=== PATIENT | female | born 1950 ===

== ENCOUNTER 2016-11-25 16:16 | Inpatient (IN) | payer MEDICARE, OTHER ==
[2016-11-25] MEDS ORDERED: Sodium Chloride 0.9% 500 ML IV STA (16:40)
--- NOTE | 2016-11-25 16:48 | ED PDOC ---
HPI: Chest Pain Time Seen by Provider: 11/25/16 16:29 Chief Complaint (Nursing): Chest Pain Chief Complaint (Provider): Left sided chest discomfort History Per: Patient History/Exam Limitations: no limitations Onset/Duration Of Symptoms: Days (1) Current Symptoms Are (Timing): Still Present Quality: Pressure Associated Symptoms: Nausea (nausea and vomiting) Additional History Per: Patient Additional Complaint(s): The Patient is a 66yo female, Past medical history of Hypertension, presents to the ED for evaluation of left sided chest pressure radiating to her left arm with episodes of vomiting since last night. Patient reports she had similar symptom last year which resolved spontaneously. She reports her chest discomfort is getting better but has not resolved completely. She denies any associated headache, dizziness, abdomina pain, shortness of breath, numbness, tingling, light headedness, dizziness, leg pain. Patient also denies being on any hormonal treatments. She currently offers no additional medical complaints. No new food or drinks. No etoh or drugs. No travel. No known drug allergies Past Medical History Reviewed: Historical Data, Nursing Documentation, Vital Signs Vital Signs: Last Vital Signs Temp 97.7 F 11/25/16 16:23 Pulse 56 L 11/25/16 16:23 Resp 18 11/25/16 16:23 BP Pulse Ox 99 11/25/16 16:55 - Medical History PMH: HTN - Surgical History Other surgeries: abdominal surgery for colon ca resection - Family History Family History: States: Unknown Family Hx - Social History Current smoker - smoking cessation education provided: No Alcohol: None Drugs: Denies - Allergies Allergies/Adverse Reactions: Allergies Allergy/AdvReac Type Severity Reaction Status Date / Time iodine Allergy RASH Verified 11/25/16 16:23 Review of Systems ROS Statement: Except As Marked, All Systems Reviewed And Found Negative Constitutional: Negative for: Weakness Cardiovascular: Positive for: Chest Pain (Left sided chest discomfort radiating to left axilla) Respiratory: Negative for: Shortness of Breath Gastrointestinal: Positive for: Vomiting. Negative for: Abdominal Pain Musculoskeletal: Negative for: Leg Pain Neurological: Negative for: Weakness, Numbness, Headache, Dizziness Physical Exam - Reviewed Nursing Documentation Reviewed: Yes Vital Signs Reviewed: Yes - Physical Exam Appears: Positive for: Non-toxic, No Acute Distress Head Exam: Positive for: ATRAUMATIC, NORMAL INSPECTION, NORMOCEPHALIC Skin: Positive for: Normal Color, Warm Eye Exam: Positive for: Normal appearance ENT: Positive for: Normal ENT Inspection Neck: Positive for: Normal, Supple Cardiovascular/Chest: Positive for: Regular Rate, Rhythm Respiratory: Positive for: Normal Breath Sounds. Negative for: Respiratory Distress Gastrointestinal/Abdominal: Positive for: Normal Exam, Soft. Negative for: Tenderness Back: Positive for: Normal Inspection. Negative for: L CVA Tenderness, R CVA Tenderness Extremity: Positive for: Normal ROM. Negative for: Tenderness, Pedal Edema, Deformity, Swelling Neurologic/Psych: Positive for: Alert, Oriented. Negative for: Motor/Sensory Deficits - Laboratory Results Result Diagrams: 11/25/16 16:54 11/25/16 16:54 Interpretation Of Abn Labs: ast, alt, t bili elevated - ECG ECG: Positive for: Interpreted By Me, Viewed By Me Interpretation Of ECG: EKg findings similar to prior. Q waves in inferior leads O2 Sat by Pulse Oximetry: 99 (RA) Pulse Ox Interpretation: Normal - Radiology X-Ray: Read By Radiologist X-Ray Interpretation: No Acute Disease - Progress ED Course And Treament: 1832: Stable. AAOx3. Dr. Alegria to take over care. FU on US and dispo. Here with chest pain. Pain free currently. Medical Decision Making Medical Decision Making: Time: 1640 Impression: Left sided chest pain radiating to left arm Plan: -- Labs -- IV Fluids -- Aspirin 325 mg PO -- Zofran 4 mg IV -- EKG -- Chest x-ray Reassess Scribe Attestation: Documented by Flaquita Jordan acting as a scribe for Otto Huerta MD. Provider Attestation: All medical record entries made by the Scribe were at my direction and personally dictated by me. I have reviewed the chart and agree that the record accurately reflects my personal performance of the history, physical exam, medical decision making, and the department course for this patient. I have also personally directed, reviewed, and agree with the discharge instructions and disposition. Disposition - Clinical Impression Clinical Impression: Chest pain, Elevated liver enzymes - Patient ED Disposition Is Patient to be Admitted: Transfer of Care - Disposition Disposition: Transfer of Care Disposition Time: 18:33 Condition: FAIR Patient Signed Over To: Leonora Alegria
[2016-11-25 17:12] LABS: BASO % 0.5 % (0.0-2.0); EOS # 0.1 K/uL (0.0-0.7); EOS % 1.2 % (0.0-4.0); HEMOGLOBIN 15.9 g/dL (12.0-16.0); LYMPH # 0.7 K/uL (1.0-4.3); LYMPH % 12.6 % (20.0-40.0); MEAN CELL VOLUME 95.9 fl (81.0-99.0); MEAN CORPUSCULAR HEMOGLOBIN 32.7 pg (27.0-31.0); MEAN CORPUSCULAR HGB CONC 34.1 g/dL (33.0-37.0); MEAN PLATELET VOLUME 7.7 fl (7.2-11.7); MONO # 0.4 K/uL (0.0-0.8); MONO % 6.4 % (0.0-10.0); NEUT # 4.7 K/uL (1.8-7.0); NEUT % 79.3 % (50.0-75.0); NRBC % 0.1 % (0.0-0.0); RBC 4.85 Mil/uL (3.80-5.20); RED CELL DISTRIBUTION WIDTH 13.9 % (11.5-14.5); WHITE BLOOD COUNT 5.9 K/uL (4.8-10.8)
[2016-11-25 17:16] LABS: ALB/GLOB RATIO 1.4 (1.0-2.1); ALBUMIN 4.5 g/dL (3.5-5.0); ALT/SGPT 369 U/L (9-52); AST/SGOT 349 U/L (14-36); BLOOD UREA NITROGEN 16 mg/dl (7-17); CALCIUM 9.3 mg/dL (8.4-10.2); GFR AFRICAN-AMERICAN > 60; GFR NON-AFRICAN AMERICAN > 60
--- NOTE | 2016-11-25 17:46 | RAD ---
HISTORY: pain COMPARISON: 10/15/2016 FINDINGS: LUNGS: No active pulmonary disease. PLEURA: No significant pleural effusion identified, no pneumothorax apparent. CARDIOVASCULAR: Normal. OSSEOUS STRUCTURES: No significant abnormalities. VISUALIZED UPPER ABDOMEN: Normal. OTHER FINDINGS: None. IMPRESSION: No active disease.
--- NOTE | 2016-11-25 19:14 | ED PDOC ---
- Laboratory Results Result Diagrams: 11/25/16 16:54 11/25/16 16:54 - ECG O2 Sat by Pulse Oximetry: 99 (RA) Pulse Ox Interpretation: Normal Medical Decision Making Medical Decision Making: Receiving sign out: Patient signed out to me by Dr. Huerta pending imaging results and final disposition. Scribe Attestation: Documented by Flaquita Jordan acting as a scribe for Leonora Alegria MD. Provider Attestation: All medical record entries made by the Scribe were at my direction and personally dictated by me. I have reviewed the chart and agree that the record accurately reflects my personal performance of the history, physical exam, medical decision making, and the department course for this patient. I have also personally directed, reviewed, and agree with the discharge instructions and disposition. Disposition - Clinical Impression Clinical Impression: Chest pain, Elevated liver enzymes - POA Present On Arrival: None - Disposition Disposition: Hospitalized as Observation Patient Disposition Time: 21:00 Condition: IMPROVED Progress Note - Review of Symptoms Events since last encounter: Time: 2045 US Abdomen IMPRESSION: Distended gallbladder with a small mobile stone; mildly enlarged fatty liver; small right extrarenal pelvis most likely normal variant; greater than 20% postvoid residual Patient was not tender over the gallbladder Time: 2099 Discussed with patient regarding need for admission, answered all questions and patient is agreeable. Case discussed with Dr. Maradiaga who is agreeable.
--- NOTE | 2016-11-25 20:44 | US ---
EXAM: US Abdomen Limited, Right Upper Quadrant CLINICAL HISTORY: 66 years old, female; Pain; Abdominal pain; Additional info: Eval gb/liver with elevated ast/alt TECHNIQUE: Real-time ultrasound of the right upper quadrant with image documentation. EXAM DATE/TIME: 11/25/2016 5:50 PM COMPARISON: There are no prior studies for comparison. FINDINGS: Liver: Hepatic texture is mildly heterogeneous. Liver appears mildly enlarged.There is hepatopedal flow in the main portal vein. Gallbladder: Gallbladder is distended. There are small shadowing stones. Gallbladder wall measures 2.6 mm in width. Common bile duct: Common hepatic duct measures 8.8 mm in the kemi hepatis. Pancreas: Pancreas is partially obscured by bowel gas. Visualized portion is echogenic. Right kidney: Right kidney is unremarkable. There is a small extrarenal pelvis. Aorta: Visualized portions of the aorta and inferior vena cava are unremarkable. Other findings: Urinary bladder is partially distended, estimated volume 262 cc. Postvoid volume is calculated at 61.6 cc. IMPRESSION: Distended gallbladder with a small mobile stone; mildly enlarged fatty liver; small right extrarenal pelvis most likely normal variant; greater than 20% postvoid residual Patient was not tender over the gallbladder
[2016-11-25 21:36] LABS: VENOUS BLOOD GAS PCO2 77 mmHg (40-60); VENOUS BLOOD GAS PO2 21 mm/Hg (30-55); VENOUS BLOOD PH 7.12 (7.32-7.43)
--- NOTE | 2016-11-25 21:44 | CP.PCM.HP ---
History of Present Illness - History of Present Illness History of Present Illness: PCP: Bria Moreno Chief Complaint: Chest pain HPI: 66 years [place] female with Hx of HTN, Diverticulosis and rectal cancer s/p colon resection, comes with sudden unset of a continuous 2 days of pressure like left sided chest pain radiating to the left axilla beginning at rest and not relieved with her home medications. It was associated with palpitations, nausea and vomits. No diaphoresis, headache, SOB nor abdominal pains. PMH: Bronchitis; HTN; Rectal cancer; Diverticulosis; Kidney stone x2 PSH: Colon resection 1995 SH: Occasional Alcohol. Smokes 1PPWeek; Live with family; FH: No known Family Hx Allergy: Iodine Present on Admission - Present on Admission Any Indicators Present on Admission: No History of DVT/PE: No History of Uncontrolled Diabetes: No Urinary Catheter: No Decubitus Ulcer Present: No Review of Systems - Constitutional Constitutional: absent: Fatigue, Fever, Headache, Lethargy, Night Sweats - EENT Eyes: Requires Corrective Lenses. absent: Diplopia, Photophobia, Sees Flashes Ears: absent: Decreased Hearing, Ear Discharge, Ear Pain, Tinnitus Nose/Mouth/Throat: absent: Epistaxis, Nasal Congestion, Sinus Pain, Sinus Pressure - Respiratory Respiratory: absent: Cough, Wheezing, Stridor - Gastrointestinal Gastrointestinal: Nausea, Vomiting. absent: Abdominal Pain, Constipation, Diarrhea - Genitourinary Genitourinary: absent: Dysuria, Flank Pain, Hematuria, Urinary Frequency - Musculoskeletal Musculoskeletal: absent: Back Pain, Neck Pain (Heaviness in legs) - Integumentary Integumentary: absent: Pruritus, Skin Ulcer, Sores - Neurological Neurological: absent: Confusion, Focal Weakness, Paresthesias, Weakness - Psychiatric Psychiatric: absent: Anxiety, Depression, Panic Attacks - Endocrine Endocrine: absent: Palpitations, Polydipsia, Polyphagia, Polyuria - Hematologic/Lymphatic Hematologic: absent: Easy Bleeding, Easy Bruising Past Patient History - Past Medical History & Family History Past Medical History?: Yes - Past Social History Smoking Status: Light Smoker < 10 Cigarettes Daily Chewing Tobacco Use: No Cigar Use: No Alcohol: Occasional Drugs: Denies Home Situation {Lives}: With Family - CARDIAC Hx Hypertension: Yes - NEUROLOGICAL Hx Neurological Disorder: No - HEENT Hx HEENT Problems: No - RENAL Hx Chronic Kidney Disease: No - ENDOCRINE/METABOLIC Hx Endocrine Disorders: No - HEMATOLOGICAL/ONCOLOGICAL Hx Cancer: Yes (rectal) - INTEGUMENTARY Hx Dermatological Problems: No - MUSCULOSKELETAL/RHEUMATOLOGICAL Hx Musculoskeletal Disorders: No - GASTROINTESTINAL Hx Gastrointestinal Disorders: No - GENITOURINARY/GYNECOLOGICAL Hx Urinary Tract Infection: Yes - PSYCHIATRIC Hx Psychophysiologic Disorder: No Hx Substance Use: No - SURGICAL HISTORY Hx Surgeries: Yes Other/Comment: Colon resection. - ANESTHESIA Hx Anesthesia: Yes Hx Anesthesia Reactions: No Meds Allergies/Adverse Reactions: Allergies Allergy/AdvReac Type Severity Reaction Status Date / Time iodine Allergy RASH Verified 11/25/16 16:23 Physical Exam - Constitutional Appears: No Acute Distress - Head Exam Head Exam: ATRAUMATIC, NORMAL INSPECTION, NORMOCEPHALIC - Eye Exam Eye Exam: EOMI, Normal appearance Pupil Exam: NORMAL ACCOMODATION, PERRL - ENT Exam ENT Exam: Mucous Membranes Moist, Normal Exam, Normal External Ear Exam, Normal Oropharynx - Neck Exam Neck exam: Positive for: Full Rom, Normal Inspection. Negative for: Lymphadenopathy, Tenderness - Respiratory Exam Respiratory Exam: Clear to Auscultation Bilateral. absent: Rales, Rhonchi, Wheezes - Cardiovascular Exam Cardiovascular Exam: REGULAR RHYTHM, RRR, +S1, +S2. absent: Gallop, JVD - GI/Abdominal Exam GI & Abdominal Exam: Normal Bowel Sounds, Soft. absent: Mass, Organomegaly - Rectal Exam Rectal Exam: Deferred - Extremities Exam Extremities exam: Positive for: normal inspection. Negative for: calf tenderness, joint swelling, pedal edema - Back Exam Back exam: NORMAL INSPECTION. absent: CVA tenderness (L), CVA tenderness (R) - Neurological Exam Neurological exam: Alert, CN II-XII Intact, Oriented x3, Reflexes Normal - Psychiatric Exam Psychiatric exam: Normal Affect, Normal Mood - Skin Skin Exam: Dry, Intact, Normal Color, Warm Results - Vital Signs Recent Vital Signs: Last Vital Signs Temp 97.7 F 11/25/16 16:23 Pulse 56 L 11/25/16 16:23 Resp 18 11/25/16 16:23 BP Pulse Ox 99 11/25/16 21:17 - Labs Result Diagrams: 11/25/16 16:54 11/26/16 05:25 Labs: Laboratory Results - last 24 hr 11/25/16 11/25/16 11/25/16 16:54 16:54 19:00 WBC 5.9 RBC 4.85 Hgb 15.9 Hct 46.6 MCV 95.9 MCH 32.7 H MCHC 34.1 RDW 13.9 Plt Count 207 MPV 7.7 Neut % (Auto) 79.3 H Lymph % (Auto) 12.6 L Wagoner % (Auto) 6.4 Eos % (Auto) 1.2 Baso % (Auto) 0.5 Neut # 4.7 Lymph # 0.7 L Wagoner # 0.4 Eos # 0.1 Baso # 0.0 pO2 VBG pH VBG pCO2 VBG HCO3 VBG Total CO2 VBG O2 Sat (Calc) VBG Base Excess Glucose Lactate FiO2 Blood Gas Comments Crit Value Called To Crit Value Called By Crit Value Read Back Blood Gas Notified Time Sodium 139 Potassium 4.1 Chloride 103 Carbon Dioxide 28 Anion Gap 12 BUN 16 Creatinine 0.7 Est GFR ( Amer) > 60 Est GFR (Non-Af Amer) > 60 Random Glucose 110 H Calcium 9.3 Total Bilirubin 2.7 H AST 349 H D ALT 369 H D Alkaline Phosphatase 142 H D Troponin I < 0.0120 Total Protein 7.8 Albumin 4.5 Globulin 3.3 Albumin/Globulin Ratio 1.4 Lipase 1037 H 11/25/16 21:28 WBC RBC Hgb Hct MCV MCH MCHC RDW Plt Count MPV Neut % (Auto) Lymph % (Auto) Wagoner % (Auto) Eos % (Auto) Baso % (Auto) Neut # Lymph # Wagoner # Eos # Baso # pO2 21 L VBG pH 7.12 L* VBG pCO2 77 H* VBG HCO3 18.1 VBG Total CO2 27.4 VBG O2 Sat (Calc) 29.7 L VBG Base Excess -6.0 L Glucose 99 Lactate 0.9 FiO2 21.0 Blood Gas Comments Hand delivered Crit Value Called To Dr shea burgos Crit Value Called By 162 Crit Value Read Back Y Blood Gas Notified Time 2130 Sodium 123.0 L Potassium Chloride 101.0 Carbon Dioxide Anion Gap BUN Creatinine Est GFR ( Amer) Est GFR (Non-Af Amer) Random Glucose Calcium Total Bilirubin AST ALT Alkaline Phosphatase Troponin I Total Protein Albumin Globulin Albumin/Globulin Ratio Lipase - Imaging and Cardiology Chest x-ray Status: Image reviewed by me, Report reviewed by me Additional comment: No Active Disease Abdominal US Status: Report reviewed by me Additional comment: FINDINGS: Liver: Hepatic texture is mildly heterogeneous. Liver appears mildly enlarged.There is hepatopedal flow in the main portal vein. Gallbladder: Gallbladder is distended. There are small shadowing stones. Gallbladder wall measures 2.6 mm in width. Common bile duct: Common hepatic duct measures 8.8 mm in the kemi hepatis. Pancreas: Pancreas is partially obscured by bowel gas. Visualized portion is echogenic. Right kidney: Right kidney is unremarkable. There is a small extrarenal pelvis. Aorta: Visualized portions of the aorta and inferior vena cava are unremarkable. Other findings: Urinary bladder is partially distended, estimated volume 262 cc. Postvoid volume is calculated at 61.6 cc. IMPRESSION: Distended gallbladder with a small mobile stone; mildly enlarged fatty liver; small right extrarenal pelvis most likely normal variant; greater than 20% postvoid residual Patient was not tender over the gallbladder Assessment & Plan - Assessment and Plan (Free Text) Assessment: #. Chest Pain #.Elevated liver enzymes #. Pancreatitis #. Respiratory and Metabolic acidosis #. Fatty liver #. Cholelithiasis #. Hx of rectal Ca Plan: 66 years [place] female with Hx of HTN, Diverticulosis and rectal cancer s/p colon resection, comes with sudden unset of a continuous 2 days of pressure like left sided chest pain radiating to the left axilla beginning at rest and not relieved with her home medications. #. Chest Pain r/o ACS - Consult Dr Vasquez cardiology - Serial Troponin - Serial EKG - Lipid panel - ASA - Nitro SL - ECHO #.Elevated liver enzymes with Fatty liver - Follow CT of abdomen with Contrast to r/o signs of malignancy Patient indicate that she will see her Support Services Specialist Dr Moraes as an out- Patient #. Elevated Lipase - Probably pancreatitis - IV fluids - Follow Lipase #. Respiratory and Metabolic acidosis - Follow Repeat VBG #. Cholelithiasis with no cholecystitis - Patient may need MRCP She will follow up with her Support Services Specialist who is not on staff #. Hx of rectal Ca #. Stress ulcer prophylaxis with Pepcid #. DVT prophylaxis with Lovenox #. Code Status Full - Date & Time Date: 11/25/16 Time: 21:44
[2016-11-25 21:49] LABS: PARTIAL THROMBOPLASTIN TIME 33.1 Seconds (25.6-37.1); PROTHROMBIN TIME 11.3 Seconds (9.8-13.1)
[2016-11-26] MEDS: Sodium Chloride 0.9% 1,000 ML IV SCH ×3 (00:29→16:46)
[2016-11-26] MEDS ORDERED: Alum-Mag Hydrox-Simethicone Susp (30 mL) ONE (03:45)
[2016-11-26] MEDS ORDERED: Iohexol 240 (50 ml) ONE (05:01)
[2016-11-26] MEDS ORDERED: Diatriz Meglumine/Diatriz Sod 30 ML BOTTLE PO ONE (05:12)
[2016-11-26] MEDS ORDERED: Iohexol 240 (50 ml) PO ONE ×2 (05:54→06:19)
[2016-11-26] MEDS ORDERED: Hydrocortisone- 100 MG in Sodium Chloride 0.9% 100 ML IV ONE (06:00)
[2016-11-26 06:49] LABS: ALB/GLOB RATIO 1.3 (1.0-2.1); ALBUMIN 3.9 g/dL (3.5-5.0); ALT/SGPT 313 U/L (9-52); AST/SGOT 255 U/L (14-36); BLOOD UREA NITROGEN 13 mg/dl (7-17); CALCIUM 8.6 mg/dL (8.4-10.2); GFR AFRICAN-AMERICAN > 60; GFR NON-AFRICAN AMERICAN > 60; HDL CHOLESTEROL 47 MG/DL (30-70)
[2016-11-26 07:00] LABS: LDL CHOLESTEROL 103 mg/dL (0-129)
[2016-11-26 08:32] LABS: LIPASE 39732 U/L (23-300)
--- NOTE | 2016-11-26 08:46 | CP.PCM.CON ---
History of Present Illness - History of Present Illness History of Present Illness: Full Note Dictated Patient seen at her request. Pt known to me personally. Atypical Chest Pain No evidence of ACS Ca Rectum (in remission/ ?? recurrence) Hypertension Past Patient History - Past Medical History & Family History Past Medical History?: Yes - Past Social History Smoking Status: Light Smoker < 10 Cigarettes Daily Chewing Tobacco Use: No Cigar Use: No Alcohol: Occasional Drugs: Denies Home Situation {Lives}: With Family - CARDIAC Hx Hypertension: Yes - PULMONARY Hx Respiratory Disorders: No - NEUROLOGICAL Hx Neurological Disorder: No - HEENT Hx HEENT Problems: No - RENAL Hx Chronic Kidney Disease: No - ENDOCRINE/METABOLIC Hx Endocrine Disorders: No - HEMATOLOGICAL/ONCOLOGICAL Hx Cancer: Yes (rectal) - INTEGUMENTARY Hx Dermatological Problems: No - MUSCULOSKELETAL/RHEUMATOLOGICAL Hx Musculoskeletal Disorders: No - GASTROINTESTINAL Hx Gastrointestinal Disorders: No - GENITOURINARY/GYNECOLOGICAL Hx Urinary Tract Infection: Yes - PSYCHIATRIC Hx Psychophysiologic Disorder: No Hx Substance Use: No - SURGICAL HISTORY Hx Surgeries: Yes Other/Comment: Colon resection. - ANESTHESIA Hx Anesthesia: Yes Hx Anesthesia Reactions: No Meds Allergies/Adverse Reactions: Allergies Allergy/AdvReac Type Severity Reaction Status Date / Time iodine Allergy RASH Verified 11/25/16 16:23 - Medications Medications: Current Medications Aspirin (Ecotrin) 81 mg PO DAILY [facility] Enalapril Maleate (Vasotec) 10 mg PO DAILY [facility] Enoxaparin Sodium (Lovenox) 40 mg SC DAILY [facility] PRN Reason: Protocol Famotidine (Pepcid) 20 mg PO DAILY [facility] Sodium Chloride (Sodium Chloride 0.9%) 1,000 mls @ 250 mls/hr IV .Q4H [facility] Stop: 11/26/16 23:39 Last Admin: 11/26/16 06:08 Dose: 250 mls/hr Nitroglycerin (Nitrostat Sl Tab) 0.4 mg SL Q5M PRN PRN Reason: Other Ondansetron HCl (Zofran Inj) 4 mg IVP Q4 PRN PRN Reason: Nausea/Vomiting Results - Vital Signs Recent Vital Signs: Last Vital Signs Temp 98.0 F 11/26/16 08:30 Pulse 59 L 11/26/16 08:30 Resp 20 11/26/16 08:30 BP 163/89 H 11/26/16 08:30 Pulse Ox 97 11/26/16 08:30 - Labs Result Diagrams: 11/25/16 16:54 11/26/16 05:25 Labs: Laboratory Results - last 24 hr 11/25/16 11/25/16 11/26/16 21:09 21:28 05:25 PT 11.3 INR 1.0 APTT 33.1 pO2 21 L VBG pH 7.12 L* VBG pCO2 77 H* VBG HCO3 18.1 VBG Total CO2 27.4 VBG O2 Sat (Calc) 29.7 L VBG Base Excess -6.0 L Sodium 123.0 L 141 Chloride 101.0 110 H Glucose 99 Lactate 0.9 FiO2 21.0 Blood Gas Comments Hand delivered Crit Value Called To Dr shea burgos Crit Value Called By 162 Crit Value Read Back Y Blood Gas Notified Time 2130 Potassium 3.9 Carbon Dioxide 21 L Anion Gap 14 BUN 13 Creatinine 0.6 L Est GFR ( Amer) > 60 Est GFR (Non-Af Amer) > 60 Random Glucose 135 H Calcium 8.6 Total Bilirubin 4.3 H AST 255 H D ALT 313 H Alkaline Phosphatase 143 H Troponin I < 0.0120 Total Protein 6.9 Albumin 3.9 Globulin 3.0 Albumin/Globulin Ratio 1.3 Triglycerides 137 Cholesterol 186 LDL Cholesterol Direct 103 HDL Cholesterol 47 Lipase 55018 H
[2016-11-26] MEDS ORDERED: Iohexol 300 100 ML IJ ONE ×2 (08:52→13:16)
[2016-11-26] MEDS ORDERED: Sodium Chloride 0.9% 0 ML IV ONE (08:52)
[2016-11-26] MEDS: Enoxaparin 40 mg Syringe SC SCH (09:18)
--- NOTE | 2016-11-26 13:05 | CP.PCM.PN ---
Subjective - Date & Time of Evaluation Date of Evaluation: 11/26/16 Time of Evaluation: 11:30 - Subjective Subjective: Patient seen and examined bedside.Feeling well. denies any Chest pain , abdominal pain , nausea or vomiting. Had 1 episode of vomiting in AM NPO for now Hemodynamically stable, afebrile. LFTS and bilirubin trending up Objective - Vital Signs/Intake and Output Vital Signs (last 24 hours): Temp Pulse Resp BP Pulse Ox 97.9 F 57 L 20 167/83 H 96 11/26/16 12:26 11/26/16 12:11/26/16 12:11/26/16 12:11/26/16 12:26 - Medications Medications: Current Medications Aspirin (Ecotrin) 81 mg PO DAILY [facility] Enalapril Maleate (Vasotec) 10 mg PO DAILY [facility] Enoxaparin Sodium (Lovenox) 40 mg SC DAILY [facility] PRN Reason: Protocol Last Admin: 11/26/16 09:18 Dose: 40 mg Famotidine (Pepcid) 20 mg PO DAILY [facility] Sodium Chloride (Sodium Chloride 0.9%) 1,000 mls @ 250 mls/hr IV .Q4H [facility] Stop: 11/26/16 23:39 Last Admin: 11/26/16 06:08 Dose: 250 mls/hr Nitroglycerin (Nitrostat Sl Tab) 0.4 mg SL Q5M PRN PRN Reason: Other Ondansetron HCl (Zofran Inj) 4 mg IVP Q4 PRN PRN Reason: Nausea/Vomiting Last Admin: 11/26/16 09:20 Dose: 4 mg - Labs Labs: 11/26/16 05:25 PT 11.3 Seconds (9.8-13.1) 11/25/16 21:09 INR 1.0 (0.9-1.2) 11/25/16 21:09 APTT 33.1 Seconds (25.6-37.1) 11/25/16 21:09 - Constitutional Appears: Well, Non-toxic, No Acute Distress - Head Exam Head Exam: ATRAUMATIC, NORMAL INSPECTION, NORMOCEPHALIC - Eye Exam Eye Exam: EOMI, Normal appearance, PERRL Pupil Exam: NORMAL ACCOMODATION - ENT Exam ENT Exam: Mucous Membranes Moist, Normal Exam - Neck Exam Neck Exam: Full ROM, Normal Inspection - Respiratory Exam Respiratory Exam: Clear to Ausculation Bilateral, NORMAL BREATHING PATTERN. absent: Rales, Rhonchi, Wheezes - Cardiovascular Exam Cardiovascular Exam: REGULAR RHYTHM, RRR, +S1, +S2. absent: JVD - GI/Abdominal Exam GI & Abdominal Exam: Soft, Normal Bowel Sounds. absent: Distended, Guarding, Tenderness, Rebound - Rectal Exam Rectal Exam: Deferred - Extremities Exam Extremities Exam: Full ROM, Normal Capillary Refill, Normal Inspection. absent : Calf Tenderness, Pedal Edema - Back Exam Back Exam: NORMAL INSPECTION - Neurological Exam Neurological Exam: Alert, Awake, CN II-XII Intact, Oriented x3 - Psychiatric Exam Psychiatric exam: Normal Affect, Normal Mood - Skin Skin Exam: Dry, Intact, Normal Color, Warm Assessment and Plan - Assessment and Plan (Free Text) Assessment: 66 years old female with Hx of HTN, Diverticulosis and rectal cancer s/p colon resection, comes with sudden unset of a continuous 2 days of pressure like left sided chest pain radiating to the left axilla beginning at rest and not relieved with her home medications. Patient initially admitted for chest pain rule out ACS. Her lab work up showed elevated LFT-s , bilirubin and lipase .patient with no abdominal pain , nausea, vomiting, melena 1. Chest Pain-- ACS ruled out Consult Dr Vasquez cardiology appreciated Serial Troponin negative Echo showed normal wall motion continue ASA 2.Elevated liver enzymes. bilirubin and Lipase uncler etiology LFT-s, bilirubin and Liapose trending up Ct abdomen showed possible acute on subacute cholecystitis Surgery and GI consulted follow up MRI and MRCP follow up hepatitis profile, Ca19-9, Alfafeto proteine, antimitochondrail Ab, Continue IVF 3. Elevated Lipase unlikely pancreatitis patient has no abdominal pain , nausea or vomiting CT abdomen showed no pancreatitis 4. Cholelithiasis with acute on subacute cholecystitis surgery consulted Started Zosyn IV empirically Follow up MRCP 5. Respiratory and Metabolic acidosis unclear etology Continue IVF refused ABG 6. Hx of rectal Ca 7. Stress ulcer prophylaxis with Pepcid 8. DVT prophylaxis with Lovenox
[2016-11-26] MEDS ORDERED: Sodium Chloride 0.9% 50 ML IV ONE (13:16)
--- NOTE | 2016-11-26 13:19 | CARD ---
APPROVED REPORT EKG Measurement Heart [id number] [id number] <Conclusion> Sinus bradycardia Left axis deviation Inferior infarct, age undetermined Abnormal ECG
--- NOTE | 2016-11-26 13:26 | CARD ---
APPROVED REPORT EKG Measurement Heart [id number] <Conclusion> Sinus bradycardia Left axis deviation Inferior infarct, age undetermined Abnormal ECG
--- NOTE | 2016-11-26 14:12 | CARD ---
APPROVED REPORT EXAM: Two-dimensional and M-mode echocardiogram with Doppler and color Doppler. Other Information Quality : GoodRhythm : NSR INDICATION Chest Pain 2D DIMENSIONS IVSd0.84 (0.7-1.1cm)LVDd4.14 (3.9-5.9cm) PWd0.81 (0.7-1.1cm)IVSs1.24 (0.8-1.2cm) LVDs2.40 (2.5-4.0cm)FS (%) 42.1 % PWs1.21 (0.8-1.2cm) M-Mode DIMENSIONS Left Atrium (MM)3.04 (2.5-4.0cm)IVSd0.59 (0.7-1.1cm) Aortic Root2.52 (2.2-3.7cm)LVDd4.99 (4.0-5.6cm) Aortic Cusp Exc.1.36 (1.5-2.0cm)PWd0.77 (0.7-1.1cm) IVSs1.00 cmFS (%) 29 % LVDs3.53 (2.0-3.8cm)PWs0.98 cm Mitral Valve MV E Erlfyafz42.8cm/sMV E Peak Gr.44mmHgMV DECEL [id number] MV A Fxdplulo47.9cm/sMV HFC70yiW/A ratio0.7 MVA (PHT)3.59cm2 TDI Lateral E' Peak V10.76cm/sMedial E' Peak V14.83cm/sE/Lateral E'5.7 E/Medial E'4.1 Tricuspid Valve TR Peak [id number]/sRAP [id number] Peak Gr.25mmHg [id number] LEFT VENTRICLE The left ventricle is normal size. There is normal left ventricular wall thickness. The left ventricular function is normal. The left ventricular ejection fraction is - 70%. There is normal LV segmental wall motion. Transmitral Doppler flow pattern is Grade I-abnormal relaxation pattern. No left ventricle thrombus noted on this study. There is no ventricular septal defect visualized. There is no left ventricular aneurysm. There is no mass noted in the left ventricle. RIGHT VENTRICLE The right ventricle is normal size. There is normal right ventricular wall thickness. The right ventricular systolic function is normal. ATRIA The left atrium size is normal. The right atrium size is normal. The interatrial septum is intact with no evidence for an atrial septal defect. AORTIC VALVE The aortic valve is normal in structure and function. No aortic regurgitation is present. There is no aortic valvular stenosis. MITRAL VALVE The mitral valve is normal in structure and function. There is no evidence of mitral valve prolapse. There is no mitral valve stenosis. Mitral regurgitation is moderate. TRICUSPID VALVE The tricuspid valve is normal in structure and function. There is mild tricuspid regurgitation. Right ventricular systolic pressure is estimated at 39 mmHg. There is no tricuspid valve prolapse or vegetation. There is no tricuspid valve stenosis. PULMONIC VALVE The pulmonary valve is normal in structure and function. There is no pulmonic valvular regurgitation. GREAT VESSELS The aortic root is normal in size. The IVC is normal in size and collapses >50% with inspiration. PERICARDIAL EFFUSION The pericardium appears normal. There is no pleural effusion. <Conclusion> The left ventricle is normal in size and wall thickness. The left ventricular function is normal. The left ventricular ejection fraction is - 70%. The left atrium, right ventricle and right atrium are normal in size. The mitral, aortic and tricuspid valves are normal. There is moderate mitral regurgitation and mild tricuspid regurgitation.
--- NOTE | 2016-11-26 15:24 | CT ---
PROCEDURE: CT Abdomen and Pelvis with contrast HISTORY: elevated LFT-s and bilirubin COMPARISON: Limited abdomen ultrasound 11/25/2016, abdomen pelvis CT 12/03/2011. TECHNIQUE: Contrast dose: Omniscan 300, 95 cc. Radiation dose: Total exam DLP = 558 mGy-cm. This CT exam was performed using one or more of the following dose reduction techniques: Automated exposure control, adjustment of the mA and/or kV according to patient size, and/or use of iterative reconstruction technique. FINDINGS: LOWER THORAX: Stable benign nodule seen in the right lower lobe measuring 7 mm and remaining noncalcified dating back to prior chest CT 11/20/2007. Limited bilateral basilar fibrosis is appreciated at the right middle lobe and lingular bases. LIVER: Diffuse fatty infiltration liver is appreciated with limited focal fatty sparing at the medial right lobe inferiorly. No discrete mass seen throughout the liver nevertheless. GALLBLADDER AND BILE DUCTS: Is nondistended with mild mural thickening and limited pericholecystic fluid present. No definitive radiodense cholelithiasis is noted however overall pattern suspicious for cholecystitis. Clinically correlate further. Cholelithiasis is identified in prior ultrasound exam 02/25/2017 in the gallbladder lumen. Common bile duct appears dilated to 7.5 mm without definitive radiodense choledocholithiasis. This generally increased with prior ultrasound exam. PANCREAS: Mild dilatation of the proximal to mid pancreatic duct up to 3.5 mm with the duct through the tail and body unremarkable appearing. No defined pancreatic head or neck masses evident with remaining parenchyma unremarkable as well. SPLEEN: Unremarkable. ADRENALS: Unremarkable bilaterally. KIDNEYS AND URETERS: A stable 5 cm simple cyst in the upper pole left kidney. Moderate bilateral hydroureteronephrosis is appreciated bilaterally as well as a distended urinary bladder. This may be hydrostatic process. No definite radiodense urolithiasis. Further clinical correlation advised. No perinephric fluid collection bilaterally. The bilateral renal pelves were dilated previously, without calyceal dilatation. Current appearance of the bilateral pelves is that they have increased in volume in the interval. VASCULATURE: Unremarkable. No aortic aneurysm. BOWEL: Unremarkable. No obstruction. No gross mural thickening. APPENDIX: Normal appendix. PERITONEUM: Unremarkable. No free fluid. No free air. LYMPH NODES: Unremarkable. No enlarged lymph nodes. BLADDER: Unremarkable. REPRODUCTIVE: Prior hysterectomy again evident. BONES: Mild levoscoliotic lumbar spinal deformity with advanced degenerate disease identified at the L2-3 level. OTHER FINDINGS: Trace emphysematous change right flank subcutaneous fat at the abdominal wall, potentially iatrogenic. Clinically correlate. IMPRESSION: 1. Findings suspicious for acute or subacute cholecystitis. No radiodense cholelithiasis is appreciate current exam with radiated with cholelithiasis identified in the gallbladder lumen and prior abdomen ultrasound 11/25/2016. Mild intra and extrahepatic biliary duct dilatation is appreciated as well as of the proximal to mid pancreatic duct. Consider follow-up ERCP or MRCP. 2. Bilateral hydronephrosis is appreciated as well as hydroureter. This may be a function of hydrostatic pressure from a data from a distended urinary bladder. Further clinical correlation is advised. No radiodense urolithiasis is identified. 3. Diffuse interstitial is appreciated with likely focal fatty sparing at the medial right lobe liver inferiorly.
--- NOTE | 2016-11-26 17:17 | CP.PCM.CON ---
History of Present Illness - History of Present Illness History of Present Illness: 66 yo female initially came to ER with senseation subsrernal bleeding and found to have markely elevated LFTs. Patient has h/o rectal cancer 1996 treated with resection then chemo/ radiation. No h/o liver disease. Has sister with pancreatic cancer. Review of Systems - Constitutional Constitutional: absent: Chills - EENT Eyes: absent: Blurred Vision Ears: absent: Decreased Hearing Nose/Mouth/Throat: absent: Epistaxis - Cardiovascular Cardiovascular: Chest Pain - Respiratory Respiratory: absent: Cough - Gastrointestinal Gastrointestinal: absent: Abdominal Pain Past Patient History - Past Medical History & Family History Past Medical History?: Yes Pertinent Family History: sister with pancreatic cancer - Past Social History Smoking Status: Light Smoker < 10 Cigarettes Daily Chewing Tobacco Use: No Cigar Use: No Alcohol: Occasional Drugs: Denies Home Situation {Lives}: With Family - CARDIAC Hx Hypertension: Yes - PULMONARY Hx Respiratory Disorders: No - NEUROLOGICAL Hx Neurological Disorder: No - HEENT Hx HEENT Problems: No - RENAL Hx Chronic Kidney Disease: No - ENDOCRINE/METABOLIC Hx Endocrine Disorders: No - HEMATOLOGICAL/ONCOLOGICAL Hx Cancer: Yes (rectal) - INTEGUMENTARY Hx Dermatological Problems: No - MUSCULOSKELETAL/RHEUMATOLOGICAL Hx Musculoskeletal Disorders: No - GASTROINTESTINAL Hx Gastrointestinal Disorders: No - GENITOURINARY/GYNECOLOGICAL Hx Urinary Tract Infection: Yes - PSYCHIATRIC Hx Psychophysiologic Disorder: No Hx Substance Use: No - SURGICAL HISTORY Hx Surgeries: Yes Other/Comment: Colon resection. - ANESTHESIA Hx Anesthesia: Yes Hx Anesthesia Reactions: No Meds Allergies/Adverse Reactions: Allergies Allergy/AdvReac Type Severity Reaction Status Date / Time iodine Allergy RASH Verified 11/25/16 16:23 - Medications Medications: Current Medications Aspirin (Ecotrin) 81 mg PO DAILY [facility] Last Admin: 11/26/16 16:56 Dose: 81 mg Enalapril Maleate (Vasotec) 10 mg PO DAILY [facility] Last Admin: 11/26/16 16:57 Dose: 10 mg Enoxaparin Sodium (Lovenox) 40 mg SC DAILY [facility] PRN Reason: Protocol Last Admin: 11/26/16 09:18 Dose: 40 mg Famotidine (Pepcid) 20 mg PO DAILY [facility] Last Admin: 11/26/16 16:56 Dose: 20 mg Sodium Chloride (Sodium Chloride 0.9%) 1,000 mls @ 250 mls/hr IV .Q4H [facility] Stop: 11/26/16 23:39 Last Admin: 11/26/16 16:46 Dose: 250 mls/hr Piperacillin Sod/Tazobactam (Sod 3.375 gm/ Sodium Chloride) 100 mls @ 100 mls/ hr IVPB Q6 [facility] Nitroglycerin (Nitrostat Sl Tab) 0.4 mg SL Q5M PRN PRN Reason: Other Ondansetron HCl (Zofran Inj) 4 mg IVP Q4 PRN PRN Reason: Nausea/Vomiting Last Admin: 11/26/16 09:20 Dose: 4 mg Physical Exam - Head Exam Head Exam: ATRAUMATIC - Eye Exam Eye Exam: Normal appearance - ENT Exam ENT Exam: Mucous Membranes Moist - Neck Exam Neck exam: Positive for: Normal Inspection - Respiratory Exam Respiratory Exam: Clear to Auscultation Bilateral - Cardiovascular Exam Cardiovascular Exam: REGULAR RHYTHM, +S1, +S2 - GI/Abdominal Exam GI & Abdominal Exam: Normal Bowel Sounds, Soft. absent: Tenderness Results - Vital Signs Recent Vital Signs: Last Vital Signs Temp 98.7 F 11/26/16 15:43 Pulse 59 L 11/26/16 15:43 Resp 20 11/26/16 15:43 BP 149/78 11/26/16 15:43 Pulse Ox 98 11/26/16 15:43 - Labs Result Diagrams: 11/25/16 16:54 11/26/16 05:25 Labs: Laboratory Results - last 24 hr 11/25/16 11/25/16 11/26/16 21:09 21:28 05:25 PT 11.3 INR 1.0 APTT 33.1 pO2 21 L VBG pH 7.12 L* VBG pCO2 77 H* VBG HCO3 18.1 VBG Total CO2 27.4 VBG O2 Sat (Calc) 29.7 L VBG Base Excess -6.0 L Sodium 123.0 L 141 Chloride 101.0 110 H Glucose 99 Lactate 0.9 FiO2 21.0 Blood Gas Comments Hand delivered Crit Value Called To Dr shea burgos Crit Value Called By 162 Crit Value Read Back Y Blood Gas Notified Time 2130 Potassium 3.9 Carbon Dioxide 21 L Anion Gap 14 BUN 13 Creatinine 0.6 L Est GFR ( Amer) > 60 Est GFR (Non-Af Amer) > 60 Random Glucose 135 H Calcium 8.6 Total Bilirubin 4.3 H AST 255 H D ALT 313 H Alkaline Phosphatase 143 H Troponin I < 0.0120 Total Protein 6.9 Albumin 3.9 Globulin 3.0 Albumin/Globulin Ratio 1.3 Triglycerides 137 Cholesterol 186 LDL Cholesterol Direct 103 HDL Cholesterol 47 Lipase 37084 H - Imaging and Cardiology CT scan - abdomen Status: Report reviewed by me Assessment & Plan (1) Elevated liver enzymes Assessment and Plan: Pattern predominantly hepatic parenchymal. R/o pancreatic ca, cholagiocarcinoma , and hepatic malignancy. MRI abdomen and MRCP tomorrow. Ca19-9 and AFP . Cholecystitis unlikely because patient has no right sided abdominal pain Status: Acute
--- NOTE | 2016-11-26 17:47 | CP.PCM.CON ---
<Cas Tam - Last Filed: 11/26/16 18:47> History of Present Illness - History of Present Illness History of Present Illness: Surgery: Dr. Arzate CC: Abd pain HPI: 66F w. pmh HTN, DM, and colon CA presents to ED w. abd pain beginning Thursday night. Pain began about an hour after dinner. Pain is epigastric and radiates to chest. Pain is described as heat/burning. Pt reports nausea, no vomiting. She denies diarrhea. She denies fever and chills. She states that her urine has been darker than normal the past few days. She denies pruritus, no yellowing of the skin. She denies LU/blurred vision, no palpitations, no SOB/ cough, no hematuria/dysuria. PMH: HTN, DM, colon CA PSH: colectomy, SBO adhesions Meds: MAR reviewed NKDA Social: +Tobacco, no ETOH/drugs Fhx: pancreatic CA Review of Systems - Review of Systems All systems: reviewed and no additional remarkable complaints except (HPI) Past Patient History - Past Medical History & Family History Past Medical History?: Yes - Past Social History Smoking Status: Light Smoker < 10 Cigarettes Daily Chewing Tobacco Use: No Cigar Use: No Alcohol: Occasional Drugs: Denies Home Situation {Lives}: With Family - CARDIAC Hx Hypertension: Yes - PULMONARY Hx Respiratory Disorders: No - NEUROLOGICAL Hx Neurological Disorder: No - HEENT Hx HEENT Problems: No - RENAL Hx Chronic Kidney Disease: No - ENDOCRINE/METABOLIC Hx Endocrine Disorders: No - HEMATOLOGICAL/ONCOLOGICAL Hx Cancer: Yes (rectal) - INTEGUMENTARY Hx Dermatological Problems: No - MUSCULOSKELETAL/RHEUMATOLOGICAL Hx Musculoskeletal Disorders: No - GASTROINTESTINAL Hx Gastrointestinal Disorders: No - GENITOURINARY/GYNECOLOGICAL Hx Urinary Tract Infection: Yes - PSYCHIATRIC Hx Psychophysiologic Disorder: No Hx Substance Use: No - SURGICAL HISTORY Hx Surgeries: Yes Other/Comment: Colon resection. - ANESTHESIA Hx Anesthesia: Yes Hx Anesthesia Reactions: No Meds Allergies/Adverse Reactions: Allergies Allergy/AdvReac Type Severity Reaction Status Date / Time iodine Allergy RASH Verified 11/25/16 16:23 - Medications Medications: Current Medications Aspirin (Ecotrin) 81 mg PO DAILY [facility] Last Admin: 11/26/16 16:56 Dose: 81 mg Enalapril Maleate (Vasotec) 10 mg PO DAILY [facility] Last Admin: 11/26/16 16:57 Dose: 10 mg Enoxaparin Sodium (Lovenox) 40 mg SC DAILY [facility] PRN Reason: Protocol Last Admin: 11/26/16 09:18 Dose: 40 mg Famotidine (Pepcid) 20 mg PO DAILY [facility] Last Admin: 11/26/16 16:56 Dose: 20 mg Sodium Chloride (Sodium Chloride 0.9%) 1,000 mls @ 250 mls/hr IV .Q4H [facility] Stop: 11/26/16 23:39 Last Admin: 11/26/16 16:46 Dose: 250 mls/hr Piperacillin Sod/Tazobactam (Sod 3.375 gm/ Sodium Chloride) 100 mls @ 100 mls/ hr IVPB Q6 [facility] Nitroglycerin (Nitrostat Sl Tab) 0.4 mg SL Q5M PRN PRN Reason: Other Ondansetron HCl (Zofran Inj) 4 mg IVP Q4 PRN PRN Reason: Nausea/Vomiting Last Admin: 11/26/16 09:20 Dose: 4 mg Physical Exam - Constitutional Appears: Non-toxic, No Acute Distress - Head Exam Head Exam: ATRAUMATIC, NORMOCEPHALIC - Eye Exam Eye Exam: EOMI. absent: Scleral icterus - ENT Exam ENT Exam: Mucous Membranes Moist, Normal External Ear Exam - Neck Exam Neck exam: Positive for: Full Rom - Respiratory Exam Respiratory Exam: NORMAL BREATHING PATTERN. absent: Accessory Muscle Use, Respiratory Distress - GI/Abdominal Exam GI & Abdominal Exam: Soft. absent: Distended, Firm, Guarding, Rebound, Rigid, Tenderness - Extremities Exam Extremities exam: Negative for: calf tenderness, pedal edema - Neurological Exam Neurological exam: Alert, Oriented x3 - Psychiatric Exam Psychiatric exam: Normal Affect, Normal Mood - Skin Skin Exam: Dry, Normal Color, Warm Results - Vital Signs Recent Vital Signs: Last Vital Signs Temp 98.7 F 11/26/16 15:43 Pulse 59 L 11/26/16 15:43 Resp 20 11/26/16 15:43 BP 149/78 11/26/16 15:43 Pulse Ox 98 11/26/16 15:43 - Labs Result Diagrams: 11/25/16 16:54 11/26/16 05:25 Labs: Laboratory Results - last 24 hr 11/25/16 11/25/16 11/26/16 21:09 21:28 05:25 PT 11.3 INR 1.0 APTT 33.1 pO2 21 L VBG pH 7.12 L* VBG pCO2 77 H* VBG HCO3 18.1 VBG Total CO2 27.4 VBG O2 Sat (Calc) 29.7 L VBG Base Excess -6.0 L Sodium 123.0 L 141 Chloride 101.0 110 H Glucose 99 Lactate 0.9 FiO2 21.0 Blood Gas Comments Hand delivered Crit Value Called To Dr shea burgos Crit Value Called By Pete Crit Value Read Back Y Blood Gas Notified Time 2130 Potassium 3.9 Carbon Dioxide 21 L Anion Gap 14 BUN 13 Creatinine 0.6 L Est GFR ( Amer) > 60 Est GFR (Non-Af Amer) > 60 Random Glucose 135 H Calcium 8.6 Total Bilirubin 4.3 H AST 255 H D ALT 313 H Alkaline Phosphatase 143 H Troponin I < 0.0120 Total Protein 6.9 Albumin 3.9 Globulin 3.0 Albumin/Globulin Ratio 1.3 Triglycerides 137 Cholesterol 186 LDL Cholesterol Direct 103 HDL Cholesterol 47 Lipase 54104 H - Imaging and Cardiology CT scan - abdomen Status: Image reviewed by me, Report reviewed by me US - abdomen Status: Image reviewed by me, Report reviewed by me Assessment & Plan - Assessment and Plan (Free Text) Assessment: 66F w. abd pain, transaminitis, and elevated lipase -Imaging reviewed -U/S positive for gallstones, gallstones unlikely to be responsible for current presentation -F/U results of MRCP -F/U CA-[id number] -will continue to follow -d/w Dr. Huey Tam PGY3 <Phillip Barajas - Last Filed: 11/27/16 17:46> History of Present Illness - History of Present Illness History of Present Illness: Patient was seen and examined at the bedside. Agree with resident's note above Meds - Medications Medications: Current Medications Aspirin (Ecotrin) 81 mg PO DAILY [facility] Last Admin: 11/27/16 10:47 Dose: 81 mg Enalapril Maleate (Vasotec) 10 mg PO DAILY [facility] Last Admin: 11/27/16 10:46 Dose: Not Given Enoxaparin Sodium (Lovenox) 40 mg SC DAILY [facility] PRN Reason: Protocol Last Admin: 11/27/16 10:56 Dose: Not Given Famotidine (Pepcid) 20 mg PO DAILY [facility] Last Admin: 11/27/16 10:46 Dose: 20 mg Piperacillin Sod/Tazobactam (Sod 3.375 gm/ Sodium Chloride) 100 mls @ 100 mls/ hr IVPB Q6 [facility] Last Admin: 11/27/16 17:27 Dose: 100 mls/hr Nitroglycerin (Nitrostat Sl Tab) 0.4 mg SL Q5M PRN PRN Reason: Other Ondansetron HCl (Zofran Inj) 4 mg IVP Q4 PRN PRN Reason: Nausea/Vomiting Last Admin: 11/26/16 09:20 Dose: 4 mg Results - Vital Signs Recent Vital Signs: Last Vital Signs Temp 97.9 F 11/27/16 16:20 Pulse 50 L 11/27/16 16:20 Resp 16 11/27/16 16:20 BP 96/62 L 11/27/16 16:20 Pulse Ox 96 11/27/16 16:20 - Labs Result Diagrams: 11/27/16 06:00 11/27/16 06:00 Labs: Laboratory Results - last 24 hr 11/27/16 11/27/16 11/27/16 06:00 06:00 06:00 WBC 6.1 RBC 3.99 Hgb 12.9 D Hct 38.3 MCV 96.1 MCH 32.4 H MCHC 33.7 RDW 13.7 Plt Count 157 Sodium 140 Potassium 3.7 Chloride 110 H Carbon Dioxide 24 Anion Gap 10 BUN 10 Creatinine 0.7 Est GFR ( Amer) > 60 Est GFR (Non-Af Amer) > 60 Random Glucose 95 Calcium 8.3 L Total Bilirubin 1.6 H AST 89 H D ALT 215 H D Alkaline Phosphatase 109 Total Protein 5.9 L Albumin 3.2 L Globulin 2.7 Albumin/Globulin Ratio 1.2 Lipase 891 H Alpha Fetoprotein 2.1
[2016-11-26] MEDS: Piperacillin/Tazobact 3.375 GM in Sodium Chloride 0.9% 100 ML IVPB SCH (22:02)
[2016-11-27] MEDS: Sodium Chloride 0.9% 1,000 ML IV SCH (03:03)
[2016-11-27] MEDS: Piperacillin/Tazobact 3.375 GM in Sodium Chloride 0.9% 100 ML IVPB SCH ×4 (03:04→21:30)
[2016-11-27 07:47] LABS: MEAN CELL VOLUME 96.1 fl (81.0-99.0); MEAN CORPUSCULAR HEMOGLOBIN 32.4 pg (27.0-31.0); MEAN CORPUSCULAR HGB CONC 33.7 g/dL (33.0-37.0); RBC 3.99 Mil/uL (3.80-5.20); RED CELL DISTRIBUTION WIDTH 13.7 % (11.5-14.5); WHITE BLOOD COUNT 6.1 K/uL (4.8-10.8)
[2016-11-27 07:50] LABS: HEMOGLOBIN 12.9 g/dL (12.0-16.0)
[2016-11-27 07:51] LABS: ALB/GLOB RATIO 1.2 (1.0-2.1); ALBUMIN 3.2 g/dL (3.5-5.0); ALT/SGPT 215 U/L (9-52); AST/SGOT 89 U/L (14-36); BLOOD UREA NITROGEN 10 mg/dl (7-17); CALCIUM 8.3 mg/dL (8.4-10.2); GFR AFRICAN-AMERICAN > 60; GFR NON-AFRICAN AMERICAN > 60; LIPASE 891 U/L (23-300)
[2016-11-27] MEDS ORDERED: Gadodiamide 287 MG/ML VIAL (15ML) IV ONE (09:38)
[2016-11-27] MEDS ORDERED: Sodium Chloride 0.9% 50 ML IV ONE (09:39)
--- NOTE | 2016-11-27 10:16 | CP.PCM.PN ---
Subjective - Date & Time of Evaluation Date of Evaluation: 11/27/16 Time of Evaluation: 10:30 - Subjective Subjective: Patient sen and examined bedside. Feeling well. Denies any abdominal pain. Hemodynamically stable afebrile Objective - Vital Signs/Intake and Output Vital Signs (last 24 hours): Temp Pulse Resp BP Pulse Ox 97.5 F L 55 L 20 96/58 L 97 11/27/16 08:17 11/27/16 08:17 11/27/16 08:17 11/27/16 08:17 11/27/16 08:17 - Medications Medications: Current Medications Aspirin (Ecotrin) 81 mg PO DAILY [facility] Last Admin: 11/26/16 16:56 Dose: 81 mg Enalapril Maleate (Vasotec) 10 mg PO DAILY [facility] Last Admin: 11/26/16 16:57 Dose: 10 mg Enoxaparin Sodium (Lovenox) 40 mg SC DAILY [facility] PRN Reason: Protocol Last Admin: 11/26/16 09:18 Dose: 40 mg Famotidine (Pepcid) 20 mg PO DAILY [facility] Last Admin: 11/26/16 16:56 Dose: 20 mg Piperacillin Sod/Tazobactam (Sod 3.375 gm/ Sodium Chloride) 100 mls @ 100 mls/ hr IVPB Q6 [facility] Last Admin: 11/27/16 03:04 Dose: 100 mls/hr Nitroglycerin (Nitrostat Sl Tab) 0.4 mg SL Q5M PRN PRN Reason: Other Ondansetron HCl (Zofran Inj) 4 mg IVP Q4 PRN PRN Reason: Nausea/Vomiting Last Admin: 11/26/16 09:20 Dose: 4 mg - Labs Labs: 11/27/16 06:00 11/27/16 06:00 PT 11.3 Seconds (9.8-13.1) 11/25/16 21:09 INR 1.0 (0.9-1.2) 11/25/16 21:09 APTT 33.1 Seconds (25.6-37.1) 11/25/16 21:09 - Constitutional Appears: Non-toxic, No Acute Distress - Head Exam Head Exam: ATRAUMATIC, NORMAL INSPECTION, NORMOCEPHALIC - Eye Exam Eye Exam: EOMI, Normal appearance, PERRL Pupil Exam: NORMAL ACCOMODATION - ENT Exam ENT Exam: Mucous Membranes Moist, Normal Exam - Neck Exam Neck Exam: Full ROM, Normal Inspection - Respiratory Exam Respiratory Exam: Clear to Ausculation Bilateral, NORMAL BREATHING PATTERN. absent: Rales, Rhonchi, Wheezes - Cardiovascular Exam Cardiovascular Exam: REGULAR RHYTHM, RRR, +S1, +S2. absent: JVD - GI/Abdominal Exam GI & Abdominal Exam: Soft, Normal Bowel Sounds. absent: Distended, Guarding, Tenderness, Rebound - Rectal Exam Rectal Exam: Deferred - Extremities Exam Extremities Exam: Full ROM, Normal Capillary Refill, Normal Inspection - Back Exam Back Exam: NORMAL INSPECTION - Neurological Exam Neurological Exam: Alert, Awake, CN II-XII Intact, Normal Gait, Oriented x3 - Psychiatric Exam Psychiatric exam: Normal Affect, Normal Mood - Skin Skin Exam: Dry, Intact, Normal Color, Warm Assessment and Plan - Assessment and Plan (Free Text) Assessment: 66 years old female with Hx of HTN, Diverticulosis and rectal cancer s/p colon resection, comes with sudden unset of a continuous 2 days of pressure like left sided chest pain radiating to the left axilla beginning at rest and not relieved with her home medications. Patient initially admitted for chest pain rule out ACS. Her lab work up showed elevated LFT-s , bilirubin and lipase .Patient with no abdominal pain , nausea, vomiting, melena 1. Chest Pain-- ACS ruled out Consult Dr Vasquez cardiology appreciated Serial Troponin negative Echo showed normal wall motion continue ASA 2.Elevated liver enzymes. bilirubin and Lipase Trending down significantly today AST/ALT 89/215 Emigdio from 4.3-- 1.6 Lipase from 15692 to 890 Most likely patient passed a gallstone with transient CBD blockage causing elevation of LFT-s , Emigdio and lipase Ct abdomen showed possible acute on subacute cholecystitis Surgery and GI consulted follow up MRI and MRCP reports follow up hepatitis profile, Ca19-9, Alfafeto proteine, antimitochondrail Ab, Continue IVF 3. Elevated Lipase unlikely pancreatitis patient has no abdominal pain , nausea or vomiting CT abdomen showed no pancreatitis 4. Cholelithiasis with acute on subacute cholecystitis surgery consulted Started Zosyn IV empirically Follow up MRCP 5. Respiratory and Metabolic acidosis unclear etology Continue IVF refused ABG 6. Hx of rectal Ca 7. Stress ulcer prophylaxis with Pepcid 8. DVT prophylaxis with Lovenox
[2016-11-27] MEDS: Enoxaparin 40 mg Syringe SC SCH (10:56)
--- NOTE | 2016-11-27 11:45 | CP.PCM.PN ---
<Tessa Hill - Last Filed: 11/27/16 11:42> Subjective - Date & Time of Evaluation Date of Evaluation: 11/27/16 Time of Evaluation: 11:43 - Subjective Subjective: Surgery for Dr. Arzate Pt s&eBessy TOMPKINS. Denies Pain/N/V/D/CP/SOB. Tolerating diet. Objective - Vital Signs/Intake and Output Vital Signs (last 24 hours): Temp Pulse Resp BP Pulse Ox 97.5 F L 55 L 20 96/58 L 97 11/27/16 08:17 11/27/16 09:00 11/27/16 08:17 11/27/16 08:17 11/27/16 08:17 - Medications Medications: Current Medications Aspirin (Ecotrin) 81 mg PO DAILY [facility] Last Admin: 11/27/16 10:47 Dose: 81 mg Enalapril Maleate (Vasotec) 10 mg PO DAILY [facility] Last Admin: 11/27/16 10:46 Dose: Not Given Enoxaparin Sodium (Lovenox) 40 mg SC DAILY [facility] PRN Reason: Protocol Last Admin: 11/27/16 10:56 Dose: Not Given Famotidine (Pepcid) 20 mg PO DAILY [facility] Last Admin: 11/27/16 10:46 Dose: 20 mg Piperacillin Sod/Tazobactam (Sod 3.375 gm/ Sodium Chloride) 100 mls @ 100 mls/ hr IVPB Q6 [facility] Last Admin: 11/27/16 10:47 Dose: 100 mls/hr Nitroglycerin (Nitrostat Sl Tab) 0.4 mg SL Q5M PRN PRN Reason: Other Ondansetron HCl (Zofran Inj) 4 mg IVP Q4 PRN PRN Reason: Nausea/Vomiting Last Admin: 11/26/16 09:20 Dose: 4 mg - Labs Labs: 11/27/16 06:00 11/27/16 06:00 PT 11.3 Seconds (9.8-13.1) 11/25/16 21:09 INR 1.0 (0.9-1.2) 11/25/16 21:09 APTT 33.1 Seconds (25.6-37.1) 11/25/16 21:09 - Constitutional Appears: No Acute Distress - Head Exam Head Exam: ATRAUMATIC, NORMAL INSPECTION, NORMOCEPHALIC - Eye Exam Eye Exam: EOMI, Normal appearance, PERRL Pupil Exam: NORMAL ACCOMODATION, PERRL - ENT Exam ENT Exam: Mucous Membranes Moist, Normal Exam - Neck Exam Neck Exam: Full ROM, Normal Inspection. absent: Lymphadenopathy - Respiratory Exam Respiratory Exam: Clear to Ausculation Bilateral, NORMAL BREATHING PATTERN - Cardiovascular Exam Cardiovascular Exam: REGULAR RHYTHM, +S1, +S2. absent: Murmur - GI/Abdominal Exam GI & Abdominal Exam: Soft, Normal Bowel Sounds. absent: Distended, Tenderness - Exam Exam: NORMAL INSPECTION - Extremities Exam Extremities Exam: Full ROM, Normal Capillary Refill - Back Exam Back Exam: NORMAL INSPECTION - Neurological Exam Neurological Exam: Alert, Awake, CN II-XII Intact, Normal Gait, Oriented x3 - Psychiatric Exam Psychiatric exam: Normal Affect, Normal Mood - Skin Skin Exam: Dry, Intact, Normal Color, Warm Assessment and Plan - Assessment and Plan (Free Text) Assessment: 66F w. abd pain, transaminitis, and elevated lipase: trending down Tibili down today. 1.6 -U/S positive for gallstones, gallstones unlikely to be responsible for current presentation -F/U results of MRCP -F/U [id number] -will continue to follow -will d/w Dr. Arzate <Phillip Barajas - Last Filed: 11/27/16 17:48> Subjective - Subjective Subjective: Patient was seen and examined at the bedside. Agree with resident's note above Objective - Vital Signs/Intake and Output Vital Signs (last 24 hours): Temp Pulse Resp BP Pulse Ox 97.9 F 50 L 16 96/62 L 96 11/27/16 16:20 11/27/16 16:20 11/27/16 16:20 11/27/16 16:20 11/27/16 16:20 - Medications Medications: Current Medications Aspirin (Ecotrin) 81 mg PO DAILY [facility] Last Admin: 11/27/16 10:47 Dose: 81 mg Enalapril Maleate (Vasotec) 10 mg PO DAILY [facility] Last Admin: 11/27/16 10:46 Dose: Not Given Enoxaparin Sodium (Lovenox) 40 mg SC DAILY [facility] PRN Reason: Protocol Last Admin: 11/27/16 10:56 Dose: Not Given Famotidine (Pepcid) 20 mg PO DAILY [facility] Last Admin: 11/27/16 10:46 Dose: 20 mg Piperacillin Sod/Tazobactam (Sod 3.375 gm/ Sodium Chloride) 100 mls @ 100 mls/ hr IVPB Q6 [facility] Last Admin: 11/27/16 17:27 Dose: 100 mls/hr Nitroglycerin (Nitrostat Sl Tab) 0.4 mg SL Q5M PRN PRN Reason: Other Ondansetron HCl (Zofran Inj) 4 mg IVP Q4 PRN PRN Reason: Nausea/Vomiting Last Admin: 11/26/16 09:20 Dose: 4 mg - Labs Labs: 11/27/16 06:00 11/27/16 06:00 PT 11.3 Seconds (9.8-13.1) 11/25/16 21:09 INR 1.0 (0.9-1.2) 11/25/16 21:09 APTT 33.1 Seconds (25.6-37.1) 11/25/16 21:09 Assessment and Plan - Assessment and Plan (Free Text) Plan: - Monitor LFTs and amylase and lipase - pain control - MRCP results noted - Patient will require cholecystectomy once LFTs improve - Will follow
[2016-11-27 12:47] LABS: HEPATITIS B SURFACE AG NEGATIVE (NEGATIVE)
[2016-11-27 12:53] LABS: HEPATITIS A IGM NEGATIVE (NEGATIVE); HEPATITIS B CORE AB NEGATIVE (NEGATIVE)
--- NOTE | 2016-11-27 14:08 | MRI ---
PROCEDURE: HISTORY: r/o cholangiocarcinoma or pancreatic cancer COMPARISON: CT abdomen/ pelvis 11/27/2016 TECHNIQUE: Multiplanar, multi sequence imaging of the abdomen was performed with and without intravenous gadolinium administration. FINDINGS: The liver is normal in size, contour and signal intensity. There is no focal mass. There is mild central intrahepatic biliary dilatation. There is dilatation of the common bile duct up to 7 mm diameter. The gallbladder contains a solitary small dependent calculus. The gallbladder wall is mildly thickened. There is diffuse enhancement of the gallbladder wall following intravenous gadolinium administration. This is concerning for cholecystitis. However, no pericholecystic inflammatory change is evident. There is no pericholecystic fluid appreciated. The pancreas is unremarkable. There is no mass identified. There is no pancreatic ductal dilatation. There is no peripancreatic fluid or edema. The spleen is normal size, contour and signal intensity. There is bilateral hydronephrosis and hydroureter. There is a minimally septated left upper pole renal cortical cyst, 4.9 x 4.1 cm. There is an extrarenal left renal pelvis. There is no adrenal mass identified. There is no retroperitoneal lymphadenopathy. There is no ascites. Following intravenous gadolinium administration, there is no enhancing hepatic or pancreatic mass identified. IMPRESSION: Minimal dilatation of the common bile duct and mild central intrahepatic biliary dilatation, uncertain significance. Cholelithiasis and enhancement of the gallbladder wall. Mild gallbladder wall thickening. These findings are concerning for cholecystitis. Please correlate. No hepatic or pancreatic mass. Bilateral hydroureteronephrosis. Mildly septated left upper pole renal cortical cyst.
[2016-11-27 16:12] LABS: HEPATITIS C ANTIBODY NEGATIVE (NEGATIVE)
[2016-11-28] MEDS: Piperacillin/Tazobact 3.375 GM in Sodium Chloride 0.9% 100 ML IVPB SCH ×4 (04:44→23:14)
[2016-11-28 07:14] LABS: BASO % 0.9 % (0.0-2.0); EOS # 0.1 K/uL (0.0-0.7); HEMOGLOBIN 12.5 g/dL (12.0-16.0); LYMPH # 1.7 K/uL (1.0-4.3); LYMPH % 39.4 % (20.0-40.0); MEAN CELL VOLUME 96.4 fl (81.0-99.0); MEAN CORPUSCULAR HEMOGLOBIN 32.9 pg (27.0-31.0); MEAN CORPUSCULAR HGB CONC 34.1 g/dL (33.0-37.0); MEAN PLATELET VOLUME 8.1 fl (7.2-11.7); MONO # 0.4 K/uL (0.0-0.8); MONO % 8.3 % (0.0-10.0); NEUT # 2.1 K/uL (1.8-7.0); NEUT % 48.4 % (50.0-75.0); NRBC % 0.1 % (0.0-0.0); RBC 3.82 Mil/uL (3.80-5.20); RED CELL DISTRIBUTION WIDTH 13.9 % (11.5-14.5); WHITE BLOOD COUNT 4.3 K/uL (4.8-10.8)
[2016-11-28 07:25] LABS: ALBUMIN 3.4 g/dL (3.5-5.0); AMYLASE 147 U/L (30-110)
[2016-11-28 07:26] LABS: ALB/GLOB RATIO 1.3 (1.0-2.1); ALT/SGPT 160 U/L (9-52); AST/SGOT 43 U/L (14-36); BLOOD UREA NITROGEN 10 mg/dl (7-17); CALCIUM 8.6 mg/dL (8.4-10.2); GFR AFRICAN-AMERICAN > 60; GFR NON-AFRICAN AMERICAN > 60; LIPASE 546 U/L (23-300)
--- NOTE | 2016-11-28 08:05 | CP.PCM.PN ---
<ReecejuliethjayleneCas - Last Filed: 11/28/16 08:09> Subjective - Date & Time of Evaluation Date of Evaluation: 11/28/16 Time of Evaluation: 08:03 - Subjective Subjective: Surgery: Dr. Barajas Pt seen and examined. Resting comfortably in bed. Pain is improved. No N/V. Objective - Vital Signs/Intake and Output Vital Signs (last 24 hours): Temp Pulse Resp BP Pulse Ox 98 F 48 L 18 128/74 95 11/28/16 08:00 11/28/16 08:00 11/28/16 08:00 11/28/16 08:00 11/28/16 08:00 - Medications Medications: Current Medications Enalapril Maleate (Vasotec) 10 mg PO DAILY [facility] Last Admin: 11/27/16 10:46 Dose: Not Given Enoxaparin Sodium (Lovenox) 40 mg SC DAILY [facility] PRN Reason: Protocol Last Admin: 11/27/16 10:56 Dose: Not Given Famotidine (Pepcid) 20 mg PO DAILY [facility] Last Admin: 11/27/16 10:46 Dose: 20 mg Piperacillin Sod/Tazobactam (Sod 3.375 gm/ Sodium Chloride) 100 mls @ 100 mls/ hr IVPB Q6 [facility] Last Admin: 11/28/16 04:44 Dose: 100 mls/hr Nitroglycerin (Nitrostat Sl Tab) 0.4 mg SL Q5M PRN PRN Reason: Other Ondansetron HCl (Zofran Inj) 4 mg IVP Q4 PRN PRN Reason: Nausea/Vomiting Last Admin: 11/26/16 09:20 Dose: 4 mg - Labs Labs: 11/28/16 05:50 11/28/16 05:50 PT 11.3 Seconds (9.8-13.1) 11/25/16 21:09 INR 1.0 (0.9-1.2) 11/25/16 21:09 APTT 33.1 Seconds (25.6-37.1) 11/25/16 21:09 - Constitutional Appears: Non-toxic, No Acute Distress - Head Exam Head Exam: ATRAUMATIC, NORMOCEPHALIC - Eye Exam Eye Exam: EOMI - ENT Exam ENT Exam: Mucous Membranes Moist, Normal External Ear Exam - Neck Exam Neck Exam: Full ROM - Respiratory Exam Respiratory Exam: NORMAL BREATHING PATTERN. absent: Accessory Muscle Use, Respiratory Distress - GI/Abdominal Exam GI & Abdominal Exam: Soft, Tenderness (RUQ/epigastric, mild). absent: Distended , Firm, Guarding, Rebound - Extremities Exam Extremities Exam: absent: Calf Tenderness, Pedal Edema - Neurological Exam Neurological Exam: Alert, Awake, Oriented x3 Assessment and Plan - Assessment and Plan (Free Text) Assessment: 66F w. gallstone pancreatitis -LFTs/Lipase trending down -ABD MRI: mildly dilated biliary ducts, no pancreatic mass -Pt will need cholecystectomy when lipase is WNL -c/w current medical management -will d/w attending Yonatan PGY3 <Phillip Barajas - Last Filed: 11/28/16 11:39> Subjective - Date & Time of Evaluation Time of Evaluation: 11:25 - Subjective Subjective: Patient was seen and examined at the bedside. Agree with resident's note above. Objective - Vital Signs/Intake and Output Vital Signs (last 24 hours): Temp Pulse Resp BP Pulse Ox 98 F 48 L 18 128/74 95 11/28/16 08:00 11/28/16 08:00 11/28/16 08:00 11/28/16 08:00 11/28/16 08:00 - Medications Medications: Current Medications Enalapril Maleate (Vasotec) 10 mg PO DAILY [facility] Last Admin: 11/28/16 08:42 Dose: 10 mg Enoxaparin Sodium (Lovenox) 40 mg SC DAILY [facility] PRN Reason: Protocol Last Admin: 11/28/16 08:42 Dose: Not Given Famotidine (Pepcid) 20 mg PO DAILY [facility] Last Admin: 11/28/16 08:42 Dose: 20 mg Piperacillin Sod/Tazobactam (Sod 3.375 gm/ Sodium Chloride) 100 mls @ 100 mls/ hr IVPB Q6 [facility] Last Admin: 11/28/16 09:10 Dose: 100 mls/hr Nitroglycerin (Nitrostat Sl Tab) 0.4 mg SL Q5M PRN PRN Reason: Other Ondansetron HCl (Zofran Inj) 4 mg IVP Q4 PRN PRN Reason: Nausea/Vomiting Last Admin: 11/26/16 09:20 Dose: 4 mg - Labs Labs: 11/28/16 05:50 07/28/17 05:50 PT 11.3 Seconds (9.8-13.1) 11/25/16 21:09 INR 1.0 (0.9-1.2) 11/25/16 21:09 APTT 33.1 Seconds (25.6-37.1) 11/25/16 21:09 Assessment and Plan - Assessment and Plan (Free Text) Plan: - Continue diet - pain control - Monitor LFTs - Plan for cholecystectomy on 12/01/16 - Will follow
[2016-11-28] MEDS: Enoxaparin 40 mg Syringe SC SCH (08:42)
--- NOTE | 2016-11-28 10:10 | CP.PCM.CON ---
History of Present Illness - History of Present Illness History of Present Illness: Clinically feeling better and tolerating diet Review of Systems - Constitutional Constitutional: absent: Chills - EENT Eyes: absent: Blurred Vision Nose/Mouth/Throat: absent: Epistaxis - Cardiovascular Cardiovascular: absent: Chest Pain - Respiratory Respiratory: absent: Cough - Gastrointestinal Gastrointestinal: absent: Abdominal Pain Past Patient History - Past Medical History & Family History Past Medical History?: Yes - Past Social History Smoking Status: Light Smoker < 10 Cigarettes Daily Chewing Tobacco Use: No Cigar Use: No Alcohol: Occasional Drugs: Denies Home Situation {Lives}: With Family - CARDIAC Hx Hypertension: Yes - PULMONARY Hx Respiratory Disorders: No - NEUROLOGICAL Hx Neurological Disorder: No - HEENT Hx HEENT Problems: No - RENAL Hx Chronic Kidney Disease: No - ENDOCRINE/METABOLIC Hx Endocrine Disorders: No - HEMATOLOGICAL/ONCOLOGICAL Hx Cancer: Yes (rectal) - INTEGUMENTARY Hx Dermatological Problems: No - MUSCULOSKELETAL/RHEUMATOLOGICAL Hx Musculoskeletal Disorders: No - GASTROINTESTINAL Hx Gastrointestinal Disorders: No - GENITOURINARY/GYNECOLOGICAL Hx Urinary Tract Infection: Yes - PSYCHIATRIC Hx Psychophysiologic Disorder: No Hx Substance Use: No - SURGICAL HISTORY Hx Surgeries: Yes Other/Comment: Colon resection. - ANESTHESIA Hx Anesthesia: Yes Hx Anesthesia Reactions: No Meds Allergies/Adverse Reactions: Allergies Allergy/AdvReac Type Severity Reaction Status Date / Time iodine Allergy RASH Verified 11/25/16 16:23 - Medications Medications: Current Medications Enalapril Maleate (Vasotec) 10 mg PO DAILY [facility] Last Admin: 11/28/16 08:42 Dose: 10 mg Enoxaparin Sodium (Lovenox) 40 mg SC DAILY [facility] PRN Reason: Protocol Last Admin: 11/28/16 08:42 Dose: Not Given Famotidine (Pepcid) 20 mg PO DAILY [facility] Last Admin: 11/28/16 08:42 Dose: 20 mg Piperacillin Sod/Tazobactam (Sod 3.375 gm/ Sodium Chloride) 100 mls @ 100 mls/ hr IVPB Q6 [facility] Last Admin: 11/28/16 09:10 Dose: 100 mls/hr Nitroglycerin (Nitrostat Sl Tab) 0.4 mg SL Q5M PRN PRN Reason: Other Ondansetron HCl (Zofran Inj) 4 mg IVP Q4 PRN PRN Reason: Nausea/Vomiting Last Admin: 11/26/16 09:20 Dose: 4 mg Physical Exam - Head Exam Head Exam: ATRAUMATIC - Eye Exam Eye Exam: Normal appearance - Neck Exam Neck exam: Positive for: Normal Inspection - Respiratory Exam Respiratory Exam: Clear to Auscultation Bilateral - Cardiovascular Exam Cardiovascular Exam: REGULAR RHYTHM, +S1, +S2 - GI/Abdominal Exam GI & Abdominal Exam: Normal Bowel Sounds, Soft. absent: Tenderness Results - Vital Signs Recent Vital Signs: Last Vital Signs Temp 98 F 11/28/16 08:00 Pulse 48 L 11/28/16 08:00 Resp 18 11/28/16 08:00 BP 128/74 11/28/16 08:00 Pulse Ox 95 11/28/16 08:00 - Labs Result Diagrams: 11/28/16 05:50 11/28/16 05:50 Labs: Laboratory Results - last 24 hr 11/28/16 11/28/16 05:50 05:50 WBC 4.3 L RBC 3.82 Hgb 12.5 Hct 36.8 MCV 96.4 MCH 32.9 H MCHC 34.1 RDW 13.9 Plt Count 166 MPV 8.1 Neut % (Auto) 48.4 L Lymph % (Auto) 39.4 Evangeline % (Auto) 8.3 Eos % (Auto) 3.0 Baso % (Auto) 0.9 Neut # 2.1 Lymph # 1.7 Evangeline # 0.4 Eos # 0.1 Baso # 0.0 Sodium 141 Potassium 3.6 Chloride 109 H Carbon Dioxide 25 Anion Gap 11 BUN 10 Creatinine 0.7 Est GFR ( Amer) > 60 Est GFR (Non-Af Amer) > 60 Random Glucose 84 Calcium 8.6 Total Bilirubin 1.1 AST 43 H D ALT 160 H D Alkaline Phosphatase 100 Total Protein 6.1 L Albumin 3.4 L Globulin 2.7 Albumin/Globulin Ratio 1.3 Amylase 147 H Lipase 546 H Assessment & Plan (1) Elevated liver enzymes Assessment and Plan: LFTs coming down nicely. Clinical picture c/w with gallstone pancreatitis and cholecystitis, MRCP shows minimal ductal dilation, likely due to passed stone. Cancer markers negative. Lap/keena when surgery feels it's advisable. Status: Acute
--- NOTE | 2016-11-28 16:05 | CP.PCM.PN ---
Subjective - Date & Time of Evaluation Date of Evaluation: 11/08/16 Time of Evaluation: 10:00 - Subjective Subjective: Patient seen and examined bedside. Felling well. hemodynamically stable, afebrile. Denies any abdominal pain , nause aor vomiting. Tolerating PO intake LFTs , bilirubin and lipase trending down but still elevated Objective - Vital Signs/Intake and Output Vital Signs (last 24 hours): Temp Pulse Resp BP Pulse Ox 97.6 F 55 L 18 122/71 99 11/28/16 12:00 11/28/16 12:00 11/28/16 12:00 11/28/16 12:00 11/28/16 12:00 - Medications Medications: Current Medications Enalapril Maleate (Vasotec) 10 mg PO DAILY [facility] Last Admin: 11/28/16 08:42 Dose: 10 mg Enoxaparin Sodium (Lovenox) 40 mg SC DAILY [facility] PRN Reason: Protocol Last Admin: 11/28/16 08:42 Dose: Not Given Famotidine (Pepcid) 20 mg PO DAILY [facility] Last Admin: 11/28/16 08:42 Dose: 20 mg Piperacillin Sod/Tazobactam (Sod 3.375 gm/ Sodium Chloride) 100 mls @ 100 mls/ hr IVPB Q6 [facility] Last Admin: 11/28/16 09:10 Dose: 100 mls/hr Nitroglycerin (Nitrostat Sl Tab) 0.4 mg SL Q5M PRN PRN Reason: Other Ondansetron HCl (Zofran Inj) 4 mg IVP Q4 PRN PRN Reason: Nausea/Vomiting Last Admin: 11/26/16 09:20 Dose: 4 mg - Labs Labs: 11/28/16 05:50 11/28/16 05:50 PT 11.3 Seconds (9.8-13.1) 11/25/16 21:09 INR 1.0 (0.9-1.2) 11/25/16 21:09 APTT 33.1 Seconds (25.6-37.1) 11/25/16 21:09 - Constitutional Appears: Non-toxic, No Acute Distress - Head Exam Head Exam: ATRAUMATIC, NORMAL INSPECTION, NORMOCEPHALIC - Eye Exam Eye Exam: EOMI, Normal appearance, PERRL Pupil Exam: NORMAL ACCOMODATION - ENT Exam ENT Exam: Mucous Membranes Moist, Normal Exam - Neck Exam Neck Exam: Full ROM, Normal Inspection - Respiratory Exam Respiratory Exam: Clear to Ausculation Bilateral. absent: Rales, Rhonchi, Wheezes - Cardiovascular Exam Cardiovascular Exam: REGULAR RHYTHM, RRR, +S1, +S2. absent: JVD - GI/Abdominal Exam GI & Abdominal Exam: Soft, Normal Bowel Sounds. absent: Distended, Guarding, Tenderness, Rebound - Rectal Exam Rectal Exam: Deferred - Extremities Exam Extremities Exam: Full ROM, Normal Capillary Refill, Normal Inspection. absent : Pedal Edema - Back Exam Back Exam: NORMAL INSPECTION - Neurological Exam Neurological Exam: Alert, Awake, CN II-XII Intact, Normal Gait, Oriented x3 - Psychiatric Exam Psychiatric exam: Normal Affect, Normal Mood - Skin Skin Exam: Dry, Intact, Normal Color, Warm Assessment and Plan - Assessment and Plan (Free Text) Assessment: 66 years old female with Hx of HTN, Diverticulosis and rectal cancer s/p colon resection, comes with sudden unset of a continuous 2 days of pressure like left sided chest pain radiating to the left axilla beginning at rest and not relieved with her home medications. Patient initially admitted for chest pain rule out ACS. Her lab work up showed elevated LFT-s , bilirubin and lipase that strated trending up with bilirubin 4.3 Luipase 94647 ACSt/ ALT 89/215 .Patient with no abdominal pain , nausea, vomiting, melena Surgery , Gi consulted . CT and MRI abdomen showed cholelithaisis and cholecystitis with no CBD stone . At present all values, LFTs- bilirubin and lipase trending down For lap cholecystectomy on Thursday if stable 1. Chest Pain-- ACS ruled out Consult Dr Vasquez cardiology appreciated Serial Troponin negative Echo showed normal wall motion continue ASA 2.Elevated liver enzymes. bilirubin and Lipase -- most likley secondary to Cholelithiasis with cholecystitis and transient acute pancreatitis All levels trending down significantly today AST/ALT from 255/3131 to 43/160 biklirubin from 4.3 to 1.1 and [place]ase from [address]20 to 546 Most likely patient passed a gallstone with transient CBD blockage causing elevation of LFT-s , Emigdio and lipase Ct abdomen showed possible acute on subacute cholecystitis Surgery and GI consulted MRCP showed no CBD stone and MRI showed no acute pathology Continue IVF 3. Acute gallstone pancreatitis transient patient has no abdominal pain , nausea or vomiting CT abdomen showed no [place] [address] and now 546 4. Cholelithiasis with acute on subacute cholecystitis surgery consulted Started Zosyn IV empirically MRCp showed no CBD stone patient clinically improving . LFT-s, bilirubin and lipase trending down For lap cholecystectomy on Thursday 5. Respiratory and Metabolic acidosis unclear etology Continue IVF refused ABG 6. Hx of rectal Ca tumor martker negative MRI showed no acute pathology Can follow up with her GI and oncologist for routine monitoring once discharged 7. Stress ulcer prophylaxis with Pepcid 8. DVT prophylaxis with Lovenox
[2016-11-29] MEDS: Piperacillin/Tazobact 3.375 GM in Sodium Chloride 0.9% 100 ML IVPB SCH ×4 (03:37→22:14)
[2016-11-29 08:47] LABS: HEMOGLOBIN 13.1 g/dL (12.0-16.0); MEAN CELL VOLUME 96.6 fl (81.0-99.0); MEAN CORPUSCULAR HEMOGLOBIN 32.7 pg (27.0-31.0); MEAN CORPUSCULAR HGB CONC 33.9 g/dL (33.0-37.0); RBC 4.01 Mil/uL (3.80-5.20); RED CELL DISTRIBUTION WIDTH 13.6 % (11.5-14.5); WHITE BLOOD COUNT 4.3 K/uL (4.8-10.8)
[2016-11-29 09:06] LABS: ALB/GLOB RATIO 1.3 (1.0-2.1); ALBUMIN 3.8 g/dL (3.5-5.0); ALT/SGPT 126 U/L (9-52); AST/SGOT 32 U/L (14-36); BLOOD UREA NITROGEN 12 mg/dl (7-17); CALCIUM 9.1 mg/dL (8.4-10.2); GFR AFRICAN-AMERICAN > 60; GFR NON-AFRICAN AMERICAN > 60; LIPASE 349 U/L (23-300)
[2016-11-29] MEDS: Enoxaparin 40 mg Syringe SC SCH (09:06)
--- NOTE | 2016-11-29 11:42 | CP.PCM.PN ---
Subjective - Date & Time of Evaluation Date of Evaluation: 11/29/16 Time of Evaluation: 07:00 - Subjective Subjective: GENERAL SURGERY PROGRESS NOTE FOR DR. DOAN Patient seen and examined at bedside. She denies abdominal pain or any complaints. She is tolerating her low fat diet. She denies nausea or vomiting. Objective - Vital Signs/Intake and Output Vital Signs (last 24 hours): Temp Pulse Resp BP Pulse Ox 97.9 F 53 L 20 128/66 97 11/29/16 08:04 11/29/16 08:04 11/29/16 08:04 11/29/16 08:04 11/29/16 08:04 - Medications Medications: Current Medications Enalapril Maleate (Vasotec) 10 mg PO DAILY [facility] Last Admin: 11/29/16 09:07 Dose: 10 mg Enoxaparin Sodium (Lovenox) 40 mg SC DAILY [facility] PRN Reason: Protocol Last Admin: 11/29/16 09:06 Dose: Not Given Famotidine (Pepcid) 20 mg PO DAILY [facility] Last Admin: 11/29/16 09:07 Dose: 20 mg Piperacillin Sod/Tazobactam (Sod 3.375 gm/ Sodium Chloride) 100 mls @ 100 mls/ hr IVPB Q6 [facility] Last Admin: 11/29/16 09:07 Dose: 100 mls/hr Nitroglycerin (Nitrostat Sl Tab) 0.4 mg SL Q5M PRN PRN Reason: Other Ondansetron HCl (Zofran Inj) 4 mg IVP Q4 PRN PRN Reason: Nausea/Vomiting Last Admin: 11/26/16 09:20 Dose: 4 mg - Labs Labs: 11/29/16 07:30 11/29/16 07:30 PT 11.3 Seconds (9.8-13.1) 11/25/16 21:09 INR 1.0 (0.9-1.2) 11/25/16 21:09 APTT 33.1 Seconds (25.6-37.1) 11/25/16 21:09 - Constitutional Appears: Well, Non-toxic, No Acute Distress - Head Exam Head Exam: ATRAUMATIC, NORMAL INSPECTION - Respiratory Exam Respiratory Exam: NORMAL BREATHING PATTERN. absent: Respiratory Distress - Cardiovascular Exam Cardiovascular Exam: +S1, +S2 - GI/Abdominal Exam GI & Abdominal Exam: Soft. absent: Distended, Firm, Guarding, Rigid, Tenderness , Rebound - Neurological Exam Neurological Exam: Alert, Awake, Oriented x3 - Psychiatric Exam Psychiatric exam: Normal Affect, Normal Mood - Skin Skin Exam: Dry, Normal Color, Warm Assessment and Plan - Assessment and Plan (Free Text) Assessment: 66yo F with gallstone pancreatitis - Lipase trending down, 349 today down from 546 yesterday - LFTs trending down, bilirubin WNL - Continue low fat diet - Plan for Cholecystectomy Thursday - NPO past midnight Thursday - Discussed plan with Dr. Huey Berry PGY-3
--- NOTE | 2016-11-29 17:45 | CP.PCM.PN ---
Subjective - Date & Time of Evaluation Date of Evaluation: 11/29/16 Time of Evaluation: 17:00 - Subjective Subjective: No fever Denies abd pain no N/V tolerating PO diet denies CP no SOB Objective - Vital Signs/Intake and Output Vital Signs (last 24 hours): Temp Pulse Resp BP Pulse Ox 97.9 F 47 L 20 144/82 98 11/29/16 16:03 11/29/16 16:03 11/29/16 16:03 11/29/16 16:03 11/29/16 16:03 Intake and Output: 11/29/16 11/29/16 06:59 18:59 Intake Total 1010 Balance 1010 - Medications Medications: Current Medications Enalapril Maleate (Vasotec) 10 mg PO DAILY [facility] Last Admin: 11/29/16 09:07 Dose: 10 mg Enoxaparin Sodium (Lovenox) 40 mg SC DAILY [facility] PRN Reason: Protocol Last Admin: 11/29/16 09:06 Dose: Not Given Famotidine (Pepcid) 20 mg PO DAILY [facility] Last Admin: 11/29/16 09:07 Dose: 20 mg Piperacillin Sod/Tazobactam (Sod 3.375 gm/ Sodium Chloride) 100 mls @ 100 mls/ hr IVPB Q6 [facility] Last Admin: 11/29/16 16:38 Dose: 100 mls/hr Nitroglycerin (Nitrostat Sl Tab) 0.4 mg SL Q5M PRN PRN Reason: Other Ondansetron HCl (Zofran Inj) 4 mg IVP Q4 PRN PRN Reason: Nausea/Vomiting Last Admin: 11/26/16 09:20 Dose: 4 mg - Labs Labs: 11/29/16 07:30 11/29/16 07:30 PT 11.3 Seconds (9.8-13.1) 11/25/16 21:09 INR 1.0 (0.9-1.2) 11/25/16 21:09 APTT 33.1 Seconds (25.6-37.1) 11/25/16 21:09 - Constitutional Appears: No Acute Distress - Head Exam Head Exam: NORMAL INSPECTION, NORMOCEPHALIC - Eye Exam Eye Exam: EOMI, Normal appearance Pupil Exam: NORMAL ACCOMODATION - ENT Exam ENT Exam: Mucous Membranes Moist, Normal External Ear Exam - Neck Exam Neck Exam: Full ROM. absent: Meningismus - Respiratory Exam Respiratory Exam: NORMAL BREATHING PATTERN. absent: Respiratory Distress - Cardiovascular Exam Cardiovascular Exam: REGULAR RHYTHM, +S1, +S2 - GI/Abdominal Exam GI & Abdominal Exam: Soft, Normal Bowel Sounds. absent: Tenderness - Extremities Exam Extremities Exam: Full ROM, Normal Capillary Refill. absent: Calf Tenderness, Pedal Edema - Back Exam Back Exam: Full ROM. absent: CVA tenderness (L), CVA tenderness (R) - Neurological Exam Neurological Exam: Alert, Awake, CN II-XII Intact, Oriented x3 Neuro motor strength exam: Left Upper Extremity: 5, Right Upper Extremity: 5, Left Lower Extremity: 5, Right Lower Extremity: 5 - Psychiatric Exam Psychiatric exam: Normal Affect, Normal Mood - Skin Skin Exam: Dry, Normal Color, Warm Assessment and Plan - Assessment and Plan (Free Text) Assessment: 66 years old female with Hx of HTN, Diverticulosis and rectal cancer s/p colon resection, comes with sudden unset of a continuous 2 days of pressure like left sided chest pain radiating to the left axilla beginning at rest and not relieved with her home medications. Patient initially admitted for chest pain rule out ACS. Her lab work up showed elevated LFT-s , bilirubin and lipase that started trending up with bilirubin 4.3 Lipase 84765 AST/ ALT 89/215 .Patient with no abdominal pain , nausea, vomiting, melena Surgery , Gi consulted . CT and MRI abdomen showed cholelithaisis and cholecystitis with no CBD stone . At present all values, LFTs- bilirubin and lipase trending down For lap cholecystectomy on Thursday 1. Atypical Chest Pain-- ACS ruled out Consulted Dr Vasquez cardiology Serial Troponin negative Echo showed normal wall motion 2.Elevated liver enzymes. bilirubin and Lipase -- most likely secondary to Cholelithiasis with cholecystitis and transient acute pancreatitis All levels trending down significantly today AST/ALT from 255/3131 to 32/126 bilirubin from 4.3 to 1.0 and lipase from 56904 to 349 Most likely patient passed a gallstone with transient CBD blockage causing elevation of LFT-s , Emigdio and lipase Ct abdomen showed possible acute on subacute cholecystitis Surgery and GI consulted MRCP showed no CBD stone and MRI showed no acute pathology Continue IVF 3. Acute gallstone pancreatitis transient patient has no abdominal pain , nausea or vomiting CT abdomen showed no pancreat[place] [address] and now 349 4. Cholelithiasis with acute on subacute cholecystitis surgery consulted Started Zosyn IV empirically MRCp showed no CBD stone patient clinically improving . LFT-s, bilirubin and lipase trending down For lap cholecystectomy on Thursday 5. Respiratory and Metabolic acidosis unclear etology Continue IVF refused ABG 6. Hx of rectal Ca tumor marker negative MRI showed no acute pathology Can follow up with her GI and oncologist for routine monitoring once discharged 7. Stress ulcer prophylaxis with Pepcid 8. DVT prophylaxis with Lovenox
[2016-11-30] MEDS: Piperacillin/Tazobact 3.375 GM in Sodium Chloride 0.9% 100 ML IVPB SCH ×4 (04:01→21:18)
[2016-11-30] MEDS: Enoxaparin 40 mg Syringe SC SCH (09:17)
--- NOTE | 2016-11-30 11:44 | CP.PCM.PN ---
Subjective - Date & Time of Evaluation Date of Evaluation: 11/30/16 Time of Evaluation: 11:15 - Subjective Subjective: No fever no CP no SOB Denies abd pain no N/Vplan fo Lap Reva in am Objective - Vital Signs/Intake and Output Vital Signs (last 24 hours): Temp Pulse Resp BP Pulse Ox 97.9 F 53 L 20 162/85 H 94 L 11/30/16 09:26 11/30/16 09:26 11/30/16 09:26 11/30/16 09:26 11/30/16 09:26 - Medications Medications: Current Medications Enalapril Maleate (Vasotec) 10 mg PO DAILY [facility] Last Admin: 11/30/16 09:18 Dose: 10 mg Enoxaparin Sodium (Lovenox) 40 mg SC DAILY [facility] PRN Reason: Protocol Last Admin: 11/30/16 09:17 Dose: Not Given Famotidine (Pepcid) 20 mg PO DAILY [facility] Last Admin: 11/30/16 09:18 Dose: 20 mg Piperacillin Sod/Tazobactam (Sod 3.375 gm/ Sodium Chloride) 100 mls @ 100 mls/ hr IVPB Q6 [facility] Last Admin: 11/30/16 09:17 Dose: 100 mls/hr Nitroglycerin (Nitrostat Sl Tab) 0.4 mg SL Q5M PRN PRN Reason: Other Ondansetron HCl (Zofran Inj) 4 mg IVP Q4 PRN PRN Reason: Nausea/Vomiting Last Admin: 11/26/16 09:20 Dose: 4 mg Zolpidem Tartrate (Ambien) 5 mg PO HS PRN PRN Reason: Sleep Last Admin: 11/29/16 22:34 Dose: 5 mg - Labs Labs: 11/29/16 07:30 11/29/16 07:30 PT 11.3 Seconds (9.8-13.1) 11/25/16 21:09 INR 1.0 (0.9-1.2) 11/25/16 21:09 APTT 33.1 Seconds (25.6-37.1) 11/25/16 21:09 - Constitutional Appears: No Acute Distress - Head Exam Head Exam: NORMAL INSPECTION, NORMOCEPHALIC - Eye Exam Eye Exam: EOMI, Normal appearance Pupil Exam: NORMAL ACCOMODATION - ENT Exam ENT Exam: Mucous Membranes Moist, Normal External Ear Exam - Neck Exam Neck Exam: Full ROM. absent: Meningismus - Respiratory Exam Respiratory Exam: NORMAL BREATHING PATTERN. absent: Respiratory Distress - Cardiovascular Exam Cardiovascular Exam: REGULAR RHYTHM, +S1, +S2 - GI/Abdominal Exam GI & Abdominal Exam: Soft, Normal Bowel Sounds. absent: Tenderness - Extremities Exam Extremities Exam: Full ROM, Normal Capillary Refill. absent: Calf Tenderness, Pedal Edema - Back Exam Back Exam: Full ROM. absent: CVA tenderness (L), CVA tenderness (R) - Neurological Exam Neurological Exam: Alert, Awake, CN II-XII Intact, Oriented x3 Neuro motor strength exam: Left Upper Extremity: 5, Right Upper Extremity: 5, Left Lower Extremity: 5, Right Lower Extremity: 5 - Psychiatric Exam Psychiatric exam: Normal Affect, Normal Mood - Skin Skin Exam: Dry, Normal Color, Warm Assessment and Plan - Assessment and Plan (Free Text) Assessment: 66 years old female with Hx of HTN, Diverticulosis and rectal cancer s/p colon resection, comes with sudden unset of a continuous 2 days of pressure like left sided chest pain radiating to the left axilla beginning at rest and not relieved with her home medications. Patient initially admitted for chest pain rule out ACS. Her lab work up showed elevated LFT-s , bilirubin and lipase that started trending up with bilirubin 4.3 Lipase 92016 AST/ ALT 89/215 .Patient with no abdominal pain , nausea, vomiting, melena Surgery , Gi consulted . CT and MRI abdomen showed cholelithaisis and cholecystitis with no CBD stone . At present all values, LFTs- bilirubin and lipase trending down For lap cholecystectomy on tomorrow 1. Atypical Chest Pain-- ACS ruled out Consulted Cardio : Dr Vasquez Serial Troponin negative Echo showed normal wall motion 2.Elevated liver enzymes. bilirubin and Lipase -- most likely secondary to Cholelithiasis with cholecystitis and transient acute pancreatitis All levels trending down significantly today AST/ALT from 255/3131 to 32/126 bilirubin from 4.3 to 1.0 and lipase from 09171 to 349 Most likely patient passed a gallstone with transient CBD blockage causing elevation of LFT-s , Emigdio and lipase Ct abdomen showed possible acute on subacute cholecystitis Surgery and GI consulted MRCP showed no CBD stone and MRI showed no acute pathology Continue IVF Paln fo Lap Reva on am 3. Acute gallstone pancreatitis transient patient has no abdominal pain , nausea or vomiting CT abdomen showed no pancreatitis [place] [address] and now 349 4. Cholelithiasis with acute on subacute cholecystitis surgery consulted Started Zosyn IV empirically MRCp showed no CBD stone patient clinically improving . LFT-s, bilirubin and lipase trending down For lap cholecystectomy in am NPO from [place] Hold Lovenox 5. Respiratory and Metabolic acidosis, resolved unclear etiology Continue IVF refused ABG 6. Hx of rectal Ca tumor marker negative MRI showed no acute pathology Can follow up with her GI and oncologist for routine monitoring once discharged 7. Stress ulcer prophylaxis with Pepcid 8. DVT prophylaxis with Lovenox
--- NOTE | 2016-11-30 12:19 | CP.PCM.PN ---
Subjective - Date & Time of Evaluation Date of Evaluation: 11/30/16 Time of Evaluation: 07:00 - Subjective Subjective: GENERAL SURGERY PROGRESS NOTE FOR DR. DOAN Patient seen and examined at bedside. She denies abdominal pain or any complaints. She is tolerating her low fat diet. She denies nausea or vomiting. She had a BM yesterday. Objective - Vital Signs/Intake and Output Vital Signs (last 24 hours): Temp Pulse Resp BP Pulse Ox 97.9 F 53 L 20 162/85 H 94 L 11/30/16 09:26 11/30/16 09:26 11/30/16 09:26 11/30/16 09:26 11/30/16 09:26 - Medications Medications: Current Medications Enalapril Maleate (Vasotec) 10 mg PO DAILY [facility] Last Admin: 11/30/16 09:18 Dose: 10 mg Enoxaparin Sodium (Lovenox) 40 mg SC DAILY [facility] PRN Reason: Protocol Last Admin: 11/30/16 09:17 Dose: Not Given Famotidine (Pepcid) 20 mg PO DAILY [facility] Last Admin: 11/30/16 09:18 Dose: 20 mg Piperacillin Sod/Tazobactam (Sod 3.375 gm/ Sodium Chloride) 100 mls @ 100 mls/ hr IVPB Q6 [facility] Last Admin: 11/30/16 09:17 Dose: 100 mls/hr Nitroglycerin (Nitrostat Sl Tab) 0.4 mg SL Q5M PRN PRN Reason: Other Ondansetron HCl (Zofran Inj) 4 mg IVP Q4 PRN PRN Reason: Nausea/Vomiting Last Admin: 11/26/16 09:20 Dose: 4 mg Zolpidem Tartrate (Ambien) 5 mg PO HS PRN PRN Reason: Sleep Last Admin: 11/29/16 22:34 Dose: 5 mg - Labs Labs: 11/29/16 07:30 11/29/16 07:30 PT 11.3 Seconds (9.8-13.1) 11/25/16 21:09 INR 1.0 (0.9-1.2) 11/25/16 21:09 APTT 33.1 Seconds (25.6-37.1) 11/25/16 21:09 - Constitutional Appears: Non-toxic, No Acute Distress - Head Exam Head Exam: ATRAUMATIC, NORMAL INSPECTION - Eye Exam Eye Exam: EOMI, Normal appearance - Respiratory Exam Respiratory Exam: NORMAL BREATHING PATTERN. absent: Respiratory Distress - Cardiovascular Exam Cardiovascular Exam: +S1, +S2 - GI/Abdominal Exam GI & Abdominal Exam: Soft. absent: Distended, Firm, Guarding, Rigid, Tenderness , Rebound - Neurological Exam Neurological Exam: Alert, Awake, Oriented x3 - Psychiatric Exam Psychiatric exam: Normal Affect, Normal Mood - Skin Skin Exam: Dry, Warm Assessment and Plan - Assessment and Plan (Free Text) Assessment: 66yo F with gallstone pancreatitis - Plan for Cholecystectomy Thursday, laparoscopic vs open - NPO past midnight Thursday - Lovenox held at midnight - Discussed plan with Dr. Huey Berry PGY-3
[2016-12-01] MEDS: Piperacillin/Tazobact 3.375 GM in Sodium Chloride 0.9% 100 ML IVPB SCH ×4 (04:15→21:24)
[2016-12-01 07:17] LABS: BASO % 0.7 % (0.0-2.0); EOS # 0.2 K/uL (0.0-0.7); EOS % 3.1 % (0.0-4.0); HEMOGLOBIN 12.5 g/dL (12.0-16.0); MEAN CELL VOLUME 95.6 fl (81.0-99.0); MEAN CORPUSCULAR HEMOGLOBIN 32.7 pg (27.0-31.0); MEAN CORPUSCULAR HGB CONC 34.2 g/dL (33.0-37.0); MEAN PLATELET VOLUME 7.8 fl (7.2-11.7); MONO # 0.5 K/uL (0.0-0.8); MONO % 9.2 % (0.0-10.0); NEUT # 2.3 K/uL (1.8-7.0); NRBC % 0.1 % (0.0-0.0); RBC 3.84 Mil/uL (3.80-5.20); RED CELL DISTRIBUTION WIDTH 13.5 % (11.5-14.5)
[2016-12-01 07:25] LABS: ALB/GLOB RATIO 1.3 (1.0-2.1); ALBUMIN 3.5 g/dL (3.5-5.0); AST/SGOT 29 U/L (14-36); BLOOD UREA NITROGEN 16 mg/dl (7-17); CALCIUM 9.1 mg/dL (8.4-10.2); GFR AFRICAN-AMERICAN > 60; GFR NON-AFRICAN AMERICAN > 60
--- NOTE | 2016-12-01 07:27 | CP.PCM.PN ---
Subjective - Date & Time of Evaluation Date of Evaluation: 12/01/16 Time of Evaluation: 07:00 - Subjective Subjective: Patient seen and examined bedside. feeling well. hemodynamically stable, afebrile. NPO For Or today Objective - Vital Signs/Intake and Output Vital Signs (last 24 hours): Temp Pulse Resp BP Pulse Ox 97.2 F L 87 20 110/78 98 12/01/16 01:02 12/01/16 01:02 12/01/16 01:02 12/01/16 01:02 12/01/16 01:02 - Medications Medications: Current Medications Enalapril Maleate (Vasotec) 10 mg PO DAILY [facility] Last Admin: 11/30/16 09:18 Dose: 10 mg Enoxaparin Sodium (Lovenox) 40 mg SC DAILY [facility] PRN Reason: Protocol Last Admin: 11/30/16 09:17 Dose: Not Given Famotidine (Pepcid) 20 mg PO DAILY [facility] Last Admin: 11/30/16 09:18 Dose: 20 mg Piperacillin Sod/Tazobactam (Sod 3.375 gm/ Sodium Chloride) 100 mls @ 100 mls/ hr IVPB Q6 [facility] Last Admin: 12/01/16 04:15 Dose: 100 mls/hr Nitroglycerin (Nitrostat Sl Tab) 0.4 mg SL Q5M PRN PRN Reason: Other Ondansetron HCl (Zofran Inj) 4 mg IVP Q4 PRN PRN Reason: Nausea/Vomiting Last Admin: 11/26/16 09:20 Dose: 4 mg Zolpidem Tartrate (Ambien) 5 mg PO HS PRN PRN Reason: Sleep Last Admin: 11/30/16 23:23 Dose: 5 mg - Labs Labs: 11/29/16 07:30 11/29/16 07:30 PT 11.3 Seconds (9.8-13.1) 11/25/16 21:09 INR 1.0 (0.9-1.2) 11/25/16 21:09 APTT 33.1 Seconds (25.6-37.1) 11/25/16 21:09 - Constitutional Appears: Non-toxic, No Acute Distress - Head Exam Head Exam: ATRAUMATIC, NORMAL INSPECTION, NORMOCEPHALIC - Eye Exam Eye Exam: EOMI, Normal appearance, PERRL Pupil Exam: NORMAL ACCOMODATION - ENT Exam ENT Exam: Mucous Membranes Moist, Normal Exam - Neck Exam Neck Exam: Full ROM, Normal Inspection - Respiratory Exam Respiratory Exam: Clear to Ausculation Bilateral, NORMAL BREATHING PATTERN. absent: Rales, Rhonchi, Wheezes - Cardiovascular Exam Cardiovascular Exam: REGULAR RHYTHM, RRR, +S1, +S2. absent: JVD - GI/Abdominal Exam GI & Abdominal Exam: Soft, Normal Bowel Sounds. absent: Distended, Guarding, Tenderness, Rebound - Rectal Exam Rectal Exam: Deferred - Extremities Exam Extremities Exam: Full ROM, Normal Capillary Refill, Normal Inspection - Back Exam Back Exam: NORMAL INSPECTION - Neurological Exam Neurological Exam: Alert, Awake, CN II-XII Intact, Normal Gait, Oriented x3 - Psychiatric Exam Psychiatric exam: Normal Affect, Normal Mood - Skin Skin Exam: Dry, Intact, Normal Color, Warm Assessment and Plan - Assessment and Plan (Free Text) Assessment: 66 years old female with Hx of HTN, Diverticulosis and rectal cancer s/p colon resection, comes with sudden unset of a continuous 2 days of pressure like left sided chest pain radiating to the left axilla beginning at rest and not relieved with her home medications. Patient initially admitted for chest pain rule out ACS. Her lab work up showed elevated LFT-s , bilirubin and lipase that started trending up with bilirubin 4.3 Lipase 70106 AST/ ALT 89/215 . Surgery , Gi consulted . CT and MRI abdomen showed cholelithaisis and cholecystitis with no CBD stone . At present all values, LFTs- bilirubin and lipase trending down For lap cholecystectomy today 1. Atypical Chest Pain-- ACS ruled out Consulted Cardio : Dr Vasquez Serial Troponin negative Echo showed normal wall motion 2.Elevated liver enzymes. bilirubin and Lipase -- most likely secondary to Cholelithiasis with cholecystitis and transient acute pancreatitis All levels trending down significantly today AST/ALT from 255/3131 to 32/126 bilirubin from 4.3 to 1.0 and lipase from 08614 to 349 Most likely patient passed a gallstone with transient CBD blockage causing elevation of LFT-s , Emigdio and lipase Ct abdomen showed possible acute on subacute cholecystitis Surgery and GI consulted MRCP showed no CBD stone and MRI showed no acute pathology Continue IVF Paln fo Lap Reva today 3. Acute gallstone pancreatitis transient patient has no abdominal pain , nausea or vomiting CT abdomen showed no pancreat[place] [address] and now 349 4. Cholelithiasis with acute on subacute cholecystitis surgery consulted on Zosyn IV empirically MRCP showed no CBD stone patient clinically improving . LFT-s, bilirubin and lipase trending down For lap cholecystectomy today Hold Lovenox 5. Respiratory and Metabolic acidosis, resolved unclear etiology Continue IVF refused ABG 6. Hx of rectal Ca tumor markers negative MRI showed no acute pathology Can follow up with her GI and oncologist for routine monitoring once discharged 7. Stress ulcer prophylaxis with Pepcid 8. DVT prophylaxis with Lovenox
[2016-12-01 07:30] LABS: ALT/SGPT 87 U/L (9-52)
[2016-12-01] MEDS ORDERED: Lidocaine 1% Inj (20ml) ONE (12:39)
[2016-12-01] MEDS ORDERED: Bupivacaine 0.5% Inj(30mL) ONE (12:39)
[2016-12-01] MEDS ORDERED: Lactated Ringer's 1,000 ML IV ONE (13:28)
[2016-12-01] MEDS ORDERED: Succinylcholine 200 mg/10 ml Inj IV ONE (13:31)
[2016-12-01] MEDS ORDERED: Midazolam 2 MG/2 ML VIAL ONE (13:31)
[2016-12-01] MEDS ORDERED: Propofol 10 mg/ml Inj (20 ML) ONE (13:31)
[2016-12-01] MEDS ORDERED: Rocuronium 10 mg/ml (5 ml) ONE (13:44)
[2016-12-01] MEDS ORDERED: Metoprolol 1 mg/ml Inj IVP ONE (14:10)
[2016-12-01] MEDS ORDERED: Neostigmine Methylsulfate 3mg/3ml Syringe IV ONE (14:22)
[2016-12-01] MEDS ORDERED: Neostigmine Methylsulfate 2 MG/2 ML ML IV ONE (14:22)
[2016-12-01] MEDS ORDERED: Lactated Ringer's 1,000 ML IV SCH (14:33)
[2016-12-01] MEDS ORDERED: Bupivacaine 0.5% 50 ML IJ ONE (14:37)
--- NOTE | 2016-12-01 14:57 | PCM.SURG1 ---
Surgeon's Initial Post Op Note - Surgeon's Notes Surgeon: Huey First Aid Instructor: Yonatan Daugherty PGY3, Kristi PGY3 Type of Anesthesia: General Endo, Local Pre-Operative Diagnosis: Gallastone pancreatitis Operative Findings: adhesions, inflamed gallbladder Post-Operative Diagnosis: same Operation Performed: laparoscopic cholecystectomy Specimen/Specimens Removed: gallbladder Estimated Blood Loss: EBL {In ML}: 15 Blood Products Given: N/A Drains Used: No Drains Post-Op Condition: Good Date of Surgery/Procedure: 12/01/16 Time of Surgery/Procedure: 14:58
[2016-12-01] MEDS ORDERED: HYDROmorphone 0.5 mg/0.5 ml ISec IVP PRN (15:00)
[2016-12-02] MEDS: Piperacillin/Tazobact 3.375 GM in Sodium Chloride 0.9% 100 ML IVPB SCH (04:53)
[2016-12-02 07:14] LABS: BASO % 0.3 % (0.0-2.0); EOS # 0.1 K/uL (0.0-0.7); EOS % 0.9 % (0.0-4.0); HEMOGLOBIN 13.5 g/dL (12.0-16.0); LYMPH # 1.3 K/uL (1.0-4.3); LYMPH % 17.3 % (20.0-40.0); MEAN CELL VOLUME 96.6 fl (81.0-99.0); MEAN CORPUSCULAR HEMOGLOBIN 32.5 pg (27.0-31.0); MEAN CORPUSCULAR HGB CONC 33.6 g/dL (33.0-37.0); MEAN PLATELET VOLUME 7.7 fl (7.2-11.7); MONO # 0.7 K/uL (0.0-0.8); MONO % 8.9 % (0.0-10.0); NEUT # 5.6 K/uL (1.8-7.0); NEUT % 72.6 % (50.0-75.0); RBC 4.14 Mil/uL (3.80-5.20); RED CELL DISTRIBUTION WIDTH 13.6 % (11.5-14.5); WHITE BLOOD COUNT 7.7 K/uL (4.8-10.8)
[2016-12-02 07:23] LABS: ALB/GLOB RATIO 1.3 (1.0-2.1); ALBUMIN 3.8 g/dL (3.5-5.0); ALT/SGPT 112 U/L (9-52); AST/SGOT 61 U/L (14-36); BLOOD UREA NITROGEN 13 mg/dl (7-17); GFR AFRICAN-AMERICAN > 60; GFR NON-AFRICAN AMERICAN > 60
[2016-12-02 08:04] VITALS: RESP 18; TEMP 98.3
--- NOTE | 2016-12-02 08:05 | CP.PCM.PN ---
Subjective - Date & Time of Evaluation Date of Evaluation: 12/02/16 Time of Evaluation: 08:03 - Subjective Subjective: Surgery: Dr. Arzate Pt seen and examined. Resting comfortably in bed. Pain controlled. Tolerating CLD. No N/V. +Flatus/BM. Pt would like to eat more. Objective - Vital Signs/Intake and Output Vital Signs (last 24 hours): Temp Pulse Resp BP Pulse Ox 98.4 F 55 L 17 157/79 H 97 12/02/16 04:30 12/02/16 04:30 12/02/16 04:30 12/02/16 04:30 12/02/16 04:30 - Medications Medications: Current Medications Enalapril Maleate (Vasotec) 10 mg PO DAILY [facility] Last Admin: 12/01/16 09:08 Dose: Not Given Enoxaparin Sodium (Lovenox) 40 mg SC DAILY [facility] PRN Reason: Protocol Last Admin: 11/30/16 09:17 Dose: Not Given Famotidine (Pepcid) 20 mg PO DAILY [facility] Last Admin: 12/01/16 09:08 Dose: Not Given Hydromorphone HCl (Dilaudid) 0.5 mg IVP Q4 PRN PRN Reason: Pain, moderate (4-7) Piperacillin Sod/Tazobactam (Sod 3.375 gm/ Sodium Chloride) 100 mls @ 100 mls/ hr IVPB Q6 [facility] Last Admin: 12/02/16 04:53 Dose: 100 mls/hr Lactated Ringer's (Lactated Ringer's) 1,000 mls @ 50 mls/hr IV .Q20H [facility] Nitroglycerin (Nitrostat Sl Tab) 0.4 mg SL Q5M PRN PRN Reason: Other Ondansetron HCl (Zofran Inj) 4 mg IVP Q4 PRN PRN Reason: Nausea/Vomiting Last Admin: 11/26/16 09:20 Dose: 4 mg Zolpidem Tartrate (Ambien) 5 mg PO HS PRN PRN Reason: Sleep Last Admin: 11/30/16 23:23 Dose: 5 mg - Labs Labs: 12/02/16 06:00 12/02/16 06:00 PT 11.3 Seconds (9.8-13.1) 11/25/16 21:09 INR 1.0 (0.9-1.2) 11/25/16 21:09 APTT 33.1 Seconds (25.6-37.1) 11/25/16 21:09 - Constitutional Appears: Non-toxic, No Acute Distress - Head Exam Head Exam: ATRAUMATIC, NORMOCEPHALIC - Eye Exam Eye Exam: EOMI - ENT Exam ENT Exam: Mucous Membranes Moist - Neck Exam Neck Exam: Full ROM - Respiratory Exam Respiratory Exam: NORMAL BREATHING PATTERN. absent: Accessory Muscle Use, Respiratory Distress - GI/Abdominal Exam GI & Abdominal Exam: Soft. absent: Distended, Firm, Guarding, Rigid, Tenderness , Rebound Additional comments: dressings in place, C/D/I - Extremities Exam Extremities Exam: absent: Calf Tenderness, Pedal Edema - Neurological Exam Neurological Exam: Alert, Awake, Oriented x3 Assessment and Plan - Assessment and Plan (Free Text) Assessment: 66F w gallstone pancreatitis, s/p lap keena, POD#1 -will advance diet to regular -c/w pain meds -encourage ambulation and IS use -pt clear for D/C from surgical standpoint -d/w attending Zemaitis PGY3
[2016-12-02] MEDS ORDERED: Oxycodone/Acetaminophen 5/325 mg Tab PO PRN (08:12)
[2016-12-02 11:50] VITALS: BP 150/75; PULSE 61
[2016-12-02 11:51] VITALS: O2SAT 98
--- NOTE | 2016-12-02 13:52 | CP.PCM.DIS ---
Provider - Provider Date of Admission: 11/26/16 22:51 Attending physician: Yasmany Maradiaga Primary care physician: Dr. Lorenzo ? Consults: Surgery consult GI consult cardiology consult Time Spent in preparation of Discharge (in minutes): 15 Hospital Course - Lab Results Lab Results: Most Recent Lab Values WBC 7.7 K/uL (4.8-10.8) D 12/02/16 06:00 RBC 4.14 Mil/uL (3.80-5.20) 12/02/16 06:00 Hgb 13.5 g/dL (12.0-16.0) 12/02/16 06:00 Hct 40.1 % (34.0-47.0) 12/02/16 06:00 MCV 96.6 fl (81.0-99.0) 12/02/16 06:00 MCH 32.5 pg (27.0-31.0) H 12/02/16 06:00 MCHC 33.6 g/dL (33.0-37.0) 12/02/16 06:00 RDW 13.6 % (11.5-14.5) 12/02/16 06:00 Plt Count 195 K/uL (130-400) 12/02/16 06:00 MPV 7.7 fl (7.2-11.7) 12/02/16 06:00 Neut % (Auto) 72.6 % (50.0-75.0) 12/02/16 06:00 Lymph % (Auto) 17.3 % (20.0-40.0) L 12/02/16 06:00 [place] % (Auto) 8.9 % (0.0-10.0) 12/02/16 06:00 Eos % (Auto) 0.9 % (0.0-4.0) 12/02/16 06:00 Baso % (Auto) 0.3 % (0.0-2.0) 12/02/16 06:00 Neut # 5.6 K/uL (1.8-7.0) 12/02/16 06:00 Lymph # 1.3 K/uL (1.0-4.3) 12/02/16 06:00 [place] # 0.7 K/uL (0.0-0.8) 12/02/16 06:00 Eos # 0.1 K/uL (0.0-0.7) 12/02/16 06:00 Baso # 0.0 K/uL (0.0-0.2) 12/02/16 06:00 PT 11.3 Seconds (9.8-13.1) 11/25/16 21:09 INR 1.0 (0.9-1.2) 11/25/16 21:09 APTT 33.1 Seconds (25.6-37.1) 11/25/16 21:09 pO2 21 mm/Hg (30-55) L 11/25/16 21:28 VBG pH 7.12 (7.32-7.43) L* 11/25/16 21:28 VBG pCO2 77 mmHg (40-60) H* 11/25/16 21:28 VBG HCO3 18.1 mmol/L 11/25/16 21:28 VBG Total CO2 27.4 mmol/L (22-28) 11/25/16 21:28 VBG O2 Sat (Calc) 29.7 % (40-65) L 11/25/16 21:28 VBG Base Excess -6.0 mmol/L (0.0-2.0) L 11/25/16 21:28 Sodium 123.0 mmol/L (132-148) L 11/25/16 21:28 Chloride 101.0 mmol/L (98-107) 11/25/16 21:28 Glucose 99 mg/dL (65-105) 11/25/16 21:28 Lactate 0.9 mmol/L (0.7-2.1) 11/25/16 21:28 FiO2 21.0 % 11/25/16 21:28 Blood Gas Comments Hand delivered 11/25/16 21:28 Crit Value Called To Dr shea burgos 11/25/16 21:28 Crit Value Called By 162 11/25/16 21:28 Crit Value Read Back Y 11/25/16 21:28 Blood Gas Notified Time 212911/25/16 21:28 Sodium 139 mmol/l (132-148) 12/02/16 06:00 Potassium 3.7 MMOL/L (3.6-5.0) 12/02/16 06:00 Chloride 105 mmol/L (98-107) 12/02/16 06:00 Carbon Dioxide 26 mmol/L (22-30) 12/02/16 06:00 Anion Gap 12 (10-20) 12/02/16 06:00 BUN 13 mg/dl (7-17) 12/02/16 06:00 Creatinine 0.8 mg/dL (0.7-1.2) 12/02/16 06:00 Est GFR ( Amer) > 60 12/02/16 06:00 Est GFR (Non-Af Amer) > 60 12/02/16 06:00 Random Glucose 92 mg/dL (65-105) 12/02/16 06:00 Calcium 9.0 mg/dL (8.4-10.2) 12/02/16 06:00 Total Bilirubin 1.2 mg/dl (0.2-1.3) 12/02/16 06:00 AST 61 U/L (14-36) H D 12/02/16 06:00 ALT 112 U/L (9-52) H D 12/02/16 06:00 Alkaline Phosphatase 87 U/L (38-126) 12/02/16 06:00 Troponin I < 0.0120 ng/mL (0.00-0.120) 11/26/16 05:25 Total Protein 6.7 G/DL (6.3-8.2) 12/02/16 06:00 Albumin 3.8 g/dL (3.5-5.0) 12/02/16 06:00 Globulin 2.9 gm/dL (2.2-3.9) 12/02/16 06:00 Albumin/Globulin Ratio 1.3 (1.0-2.1) 12/02/16 06:00 Triglycerides 137 mg/DL (0-149) 11/26/16 05:25 Cholesterol 186 mg/dL (0-199) 11/26/16 05:25 LDL Cholesterol Direct 103 mg/dL (0-129) 11/26/16 05:25 HDL Cholesterol 47 MG/DL (30-70) 11/26/16 05:25 Amylase 147 U/L (30-110) H 11/28/16 05:50 Lipase 349 U/L (23-300) H 11/29/16 07:30 Alpha Fetoprotein 2.1 IU/mL (0.0-7.22) 11/27/16 06:00 CA 19-9 Antigen < 1.4 U/mL (0-37) 11/26/16 19:27 Anti-Mitochondrial Ab Negative (Negative) 11/26/16 19:27 Hepatitis A IgM Ab Negative (NEGATIVE) 11/26/16 19:27 Hep Bs Antigen Negative (NEGATIVE) 11/26/16 19:27 Hep B Core IgM Ab Negative (NEGATIVE) 11/26/16 19:27 Hepatitis C Antibody Negative (NEGATIVE) 11/26/16 19:27 - Hospital Course Hospital Course: 66 years old female with Hx of HTN, Diverticulosis and rectal cancer s/p colon resection, comes with sudden unset of a continuous 2 days of pressure like left sided chest pain radiating to the left axilla beginning at rest and not relieved with her home medications. Patient initially admitted for chest pain rule out ACS. Her lab work up showed elevated LFT-s , bilirubin and lipase that started trending up with bilirubin 4.3 Lipase 77674 AST/ ALT 89/215 . Surgery , Gi consulted . CT and MRI abdomen showed cholelithiasis and cholecystitis with no CBD stone . At present all values, LFTs- bilirubin and lipase trending down Had lap cholecystectomy yesterday and doing well. Cleared by surgery for discharge 1. Atypical Chest Pain-- ACS ruled out Consulted Cardio : Dr Vasquez Serial Troponin negative Echo showed normal wall motion 2.Elevated liver enzymes. bilirubin and Lipase -- most likely secondary to Cholelithiasis with cholecystitis and transient acute pancreatitis All levels trending down significantly today AST/ALT from 255/3131 to 32/126 bilirubin from 4.3 to 1.0 and [place]ase from 42636 to 349 Most likely patient passed a gallstone with transient CBD blockage causing elevation of LFT-s , Emigdio and lipase Ct abdomen showed possible acute on subacute cholecystitis Surgery and GI consulted MRCP showed no CBD stone and MRI showed no acute pathology had l;aparascopi cholecystectomy and doing well Francisco J;l d/c home today 3. Acute gallstone pancreatitis transient patient has no abdominal pain , nausea or vomiting CT abdomen showed no [place] [address] and now trended down 349 4. Cholelithiasis with acute on subacute cholecystitis surgery consulted on Zosyn IV empirically MRCP showed no CBD stone patient clinically improving . LFT-s, bilirubin and lipase trended down s/p lap cholecystectomy yesterday 5. Respiratory and Metabolic acidosis, resolved unclear etiology Continue IVF refused ABG 6. Hx of rectal Ca tumor markers negative MRI showed no acute pathology Can follow up with her GI and oncologist for routine monitoring once discharged 7. Stress ulcer prophylaxis with Pepcid 8. DVT prophylaxis with Lovenox Discharge Exam - Head Exam Head Exam: ATRAUMATIC, NORMOCEPHALIC - Eye Exam Eye Exam: EOMI, Normal appearance, PERRL Pupil Exam: NORMAL ACCOMODATION - ENT Exam ENT Exam: Mucous Membranes Moist, Normal Exam - Neck Exam Neck exam: Full Rom, Normal Inspection - Respiratory Exam Respiratory Exam: Clear to PA & Lateral, NORMAL BREATHING PATTERN. absent: Rales, Rhonchi, Wheezes - Cardiovascular Exam Cardiovascular Exam: REGULAR RHYTHM, RRR, +S1, +S2. absent: JVD - GI/Abdominal Exam GI & Abdominal Exam: Normal Bowel Sounds, Soft. absent: Distended, Guarding, Rebound, Tenderness - Rectal Exam Rectal Exam: Deferred - Extremities Exam Extremities exam: normal capillary refill, normal inspection, pedal pulses present - Back Exam Back exam: NORMAL INSPECTION - Neurological Exam Neurological exam: Alert, CN II-XII Intact, Oriented x3, Reflexes Normal - Psychiatric Exam Psychiatric exam: Normal Affect, Normal Mood - Skin Skin Exam: Dry, Intact, Normal Color, Warm Discharge Plan - Follow Up Plan Condition: GOOD Disposition: HOME/ ROUTINE Patient education suggested?: Yes Instructions: Cholecystitis (DC), Low Fat Diet (DC), Laparoscopic Cholecystectomy (DC) Referrals: Alin Arzate MD [Staff Provider] -
--- NOTE | 2016-12-10 19:54 | OP ---
PROCEDURE DATE: 12/01/2016 PREOPERATIVE DIAGNOSIS: Gallstone, pancreatitis, cholelithiasis and cholecystitis. POSTOPERATIVE DIAGNOSIS: Gallstone, pancreatitis, cholelithiasis and cholecystitis. PROCEDURE: Laparoscopy, lysis of adhesions and laparoscopic cholecystectomy. SURGEON: Dr. Arzate. TRUCK REPAIR SUPERVISOR: Dr. Daugherty, Dr. Juan and Dr. Berry. OPERATIVE FINDING: Severe adhesions and inflamed gallbladder. INDICATIONS: This a 66-year-old female very well to me who was admitted with gallstone pancreatitis. The patient has had multiple abdominal surgeries and consent was obtained for laparoscopic possible open, so at this point after obtaining informed consent the patient taken to the operating room. After time-out was obtained, an induction of general endotracheal anesthesia was obtained, the abdomen was prepped and draped in usual manner. An incision was made in the right upper quadrant then a bladeless 5 mm trocar was inserted under direct visualization in the Visiport. Upon entering the abdominal cavity, it was visualized the patient has significant amount of adhesions to the anterior abdominal wall, plastered colon and small bowel, so pneumoperitoneum was obtained in finding a clear area an 11 mm bladeless trocar was inserted left of the midline, another one just in the epigastric region of 5 mm and another 5 mm in the right upper quadrant. The gallbladder was visualized. The whole adhesions were lysed from it. Dissection was carried out triangle [place]. The cystic duct was visualized, carefully dissected and triply clipped close to the gallbladder itself. The cystic artery was also dissected, triply clipped and divided. The gallbladder was removed from the gallbladder fossa by using hemocautery obtaining hemostasis same way. Being that there were so many adhesions in the mid abdomen, I elected to make the epigastric port *------* to take out the gallbladder this way. This was done and at this point making sure that hemostasis was excellent all trocars were removed under direct visualization. The fascia was approximated with heavy Vicryl, the skin with Monocryl. Marcaine was used for infiltration. The patient tolerated the procedure very well and transferred to recovery room in good general status. Alin Arzate MD
== END 2016-12-02 15:06 | disposition home or self-care (01) | DRG 418 ==
LOC: H.ER 16:16 → H.ERHOLD 20:13 → H.TEL 23:18 → OBSVTOIN 11-26 22:51 → H.MEDSURG1 11-28 15:08
PROVIDERS: ADMIT Internal Medicine; ATTEND Internal Medicine
PROC: 0DNE4ZZ Release Large Intestine, Percutaneous Endoscopic Approach (ICD-10-PCS; 2016-12-01)
PROC: 0FT44ZZ Resection of Gallbladder, Percutaneous Endoscopic Approach (ICD-10-PCS; principal; 2016-12-01 12:45)
DX: K85.10 Biliary acute pancreatitis without necrosis or infection (principal); K80.00 Calculus of gallbladder with acute cholecystitis without obstruction; E87.4 Mixed disorder of acid-base balance; E11.9 Type 2 diabetes mellitus without complications; I10 Essential (primary) hypertension; K76.0 Fatty (change of) liver, not elsewhere classified; Z85.048 Personal history of other malignant neoplasm of rectum, rectosigmoid junction, and anus; Z91.041 Radiographic dye allergy status; F17.210 Nicotine dependence, cigarettes, uncomplicated; R07.89 Other chest pain; K66.0 Peritoneal adhesions (postprocedural) (postinfection)

== ENCOUNTER 2017-08-06 17:33 | Emergency (ER) | payer MEDICARE, OTHER ==
[2017-08-06] MEDS ORDERED: Iohexol 240 (50 ml) PO ONE (19:26)
[2017-08-06] MEDS ORDERED: Sodium Chloride 0.9% 1,000 ML IV STA (19:27)
--- NOTE | 2017-08-06 19:30 | ED PDOC ---
HPI: Abdomen Chief Complaint (Nursing): Abdominal Pain History Per: Patient History/Exam Limitations: no limitations Onset/Duration Of Symptoms: Days Outside of [place] travel?: No Current Symptoms Are (Timing): Better Location Of Pain/Discomfort: Diffuse, RLQ Quality Of Discomfort: Cramping Associated Symptoms: Nausea, Diarrhea. denies: Fever, Chills, Vomiting Additional History Per: Patient Additional Complaint(s): Hx of pre-DM, HTN p/w abdominal pain since yesterday, started as cramping, mostly located in RLQ, assoc. w/ nausea, today had a small BM this AM, and upon arrival to ER had 3 episodes of non-bloody diarrhea, but states that after passing BM, pain has improved. Denies fevers/chills. S/p partial colectomy and cholecystectomy. Past Medical History Reviewed: Historical Data, Nursing Documentation, Vital Signs Vital Signs: Last Vital Signs Temp 98.0 F 08/07/17 06:15 Pulse 60 08/07/17 06:15 Resp 18 08/07/17 06:15 BP 144/89 08/07/17 06:15 Pulse Ox 97 08/07/17 06:34 - Medical History PMH: HTN Denies: HIV, Chronic Kidney Disease - Surgical History Surgical History: Cholecystectomy - Family History Family History: States: Unknown Family Hx - Home Medications Home Medications: Ambulatory Orders Medication Instructions Recorded Enalapril Maleate [Vasotec] 10 mg PO DAILY 11/25/16 - Allergies Allergies/Adverse Reactions: Allergies Allergy/AdvReac Type Severity Reaction Status Date / Time iodine Allergy RASH Verified 11/25/16 16:23 Review of Systems ROS Statement: Except As Marked, All Systems Reviewed And Found Negative Gastrointestinal: Positive for: Nausea, Abdominal Pain, Diarrhea Physical Exam - Reviewed Nursing Documentation Reviewed: Yes Vital Signs Reviewed: Yes - Physical Exam Appears: Positive for: Well, Non-toxic, No Acute Distress Head Exam: Positive for: ATRAUMATIC, NORMAL INSPECTION, NORMOCEPHALIC Skin: Positive for: Normal Color, Warm, DRY Eye Exam: Positive for: EOMI, Normal appearance, PERRL ENT: Positive for: Normal ENT Inspection Neck: Positive for: Normal, Painless ROM Cardiovascular/Chest: Positive for: Regular Rate, Rhythm Respiratory: Positive for: CNT, Normal Breath Sounds Gastrointestinal/Abdominal: Positive for: Normal Exam, Bowel Sounds (normal), Soft, Tenderness (minimal RLQ tenderness, medial to McBurney's) Back: Positive for: Normal Inspection Extremity: Positive for: Normal ROM Neurologic/Psych: Positive for: Alert, Oriented - Laboratory Results Result Diagrams: 08/06/17 20:40 08/06/17 20:40 - ECG O2 Sat by Pulse Oximetry: 97 Pulse Ox Interpretation: Normal Medical Decision Making Medical Decision MakinPM A/P: HX of pre-DM, HTN, abdominal surgeries p/w nausea, vomiting, abdominal pain -pain is R sided, concerned for possible appendicits, also possibly colitis, diverticulitis, less likely sbo -patient is ambulatory, well appearing at this time, comfortable appearing, states her nausea is better and doesn't want anti-nausea -pending labs, ct, and re-eval 630AM EXAM: CT Abdomen and Pelvis Without Intravenous Contrast FINDINGS: Lung bases: Heart size is normal. There is a small hiatal hernia. There is atelectasis and scarring at the lung bases. ABDOMEN: Liver: unremarkable Gallbladder and bile ducts: Gallbladder is absent. Common duct is prominent. Pancreas: Pancreas is mildly atrophic. Spleen: unremarkable Adrenals: unremarkable Kidneys and ureters: There is a left renal cyst. 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 There are bilateral extrarenal pelves. There is mild ureterectasis of both right ureters. There is moderate left ureterectasis. There is caliber change bilaterally at the level of the iliac vessels. There are no renal or ureteral stones. Stomach and bowel: Stomach is almost empty. Rotation is normal. Proximal small bowel is normal in caliber. Mid small bowel is dilated with air-fluid levels. There is an enteral anastomosis in the right lower quadrant. There is caliber change at the anastomosis. Small bowel distal to the anastomosis contains contrast and is normal in caliber. Terminal ileum is unremarkable. Appendix is not visualized.Cecum and right colon are displaced into the mid abdomen. There is moderate stool in the left colon. Appendix: See stomach and bowel PELVIS: Bladder: unremarkable Reproductive: Uterus is absent. There are no adnexal masses. ABDOMEN and PELVIS: Intraperitoneal space: There is no free air. There is minimal free fluid in the right. Bones/joints: Bony structures are osteopenic. There are degenerative changes. There is a convex left lumbar curve. Soft tissues: unremarkable Vasculature: The aorta is mildly ectatic. There are vascular calcifications. Lymph nodes: There is no pathologic adenopathy. IMPRESSION: Dilated small bowel with caliber change and an enteral anastomosis in the right lower quadrant suggests partial obstruction; prominent common duct status post cholecystectomy; bilateral ureterectasis with caliber change at the iliac vessels, unchanged; possible constipation Patient reports that she is feeling much better, no longer having any pain. Seen by surgical technology instructor who discussed case with Dr. Alin Arzate who is patient's private surgeon who states that she can followup as outpatient. Will d/c home, tolerating PO, appearing well, ambulatory. Clinically does not have signs of obstruction. Disposition - Clinical Impression Clinical Impression: Diarrhea - Disposition Referrals: Alin Arzate MD [Staff Provider] - Disposition: Routine/Home Disposition Time: 06:30 Condition: IMPROVED Additional Instructions: Please followup with Dr. Arzate as soon as possible. If your symptoms persist or worsen, or other concerning symptoms arise, please return to the ER. Instructions: Diarrhea in Adolescents and Adults Forms: [facility] (Kyrgyz)
[2017-08-06] MEDS ORDERED: Iohexol 240 (50 ml) ONE (20:18)
[2017-08-06 20:54] LABS: BASO % 0.4 % (0.0-2.0); EOS # 0.1 K/uL (0.0-0.7); EOS % 1.2 % (0.0-4.0); LYMPH # 1.9 K/uL (1.0-4.3); MEAN CELL VOLUME 96.4 fl (81.0-99.0); MEAN CORPUSCULAR HEMOGLOBIN 32.7 pg (27.0-31.0); MEAN PLATELET VOLUME 7.6 fl (7.2-11.7); MONO # 0.5 K/uL (0.0-0.8); MONO % 5.5 % (0.0-10.0); NEUT % 70.9 % (50.0-75.0); NRBC % 0.1 % (0.0-0.0); RBC 4.88 Mil/uL (3.80-5.20); RED CELL DISTRIBUTION WIDTH 13.5 % (11.5-14.5); WHITE BLOOD COUNT 8.5 K/uL (4.8-10.8)
[2017-08-06 21:06] LABS: ALB/GLOB RATIO 1.2 (1.0-2.1); ALBUMIN 4.3 g/dL (3.5-5.0); ALT/SGPT 38 U/L (9-52); AST/SGOT 29 U/L (14-36); BILIRUBIN,DIRECT 0.3 mg/ml (0.0-0.4); BLOOD UREA NITROGEN 24 mg/dl (7-17); CALCIUM 9.4 mg/dL (8.4-10.2); GFR AFRICAN-AMERICAN > 60; GFR NON-AFRICAN AMERICAN > 60; LIPASE 93 U/L (23-300)
[2017-08-07 03:32] LABS: SQUAMOUS EPITHIAL < 1 /hpf (0-5); URINE BACTERIA RARE (<OCC); URINE BILIRUBIN NEGATIVE (NEGATIVE); URINE BLOOD SMALL (NEGATIVE); URINE CLARITY CLOUDY (Clear); URINE COLOR YELLOW (YELLOW); URINE GLUCOSE (UA) NEG (Normal); URINE LEUKOCYTE ESTERASE NEG Leu/uL (Negative); URINE PROTEIN NEGATIVE (NEGATIVE); URINE URIC ACID CRYSTALS OCC /hpf (<OCC); URINE UROBILINOGEN 0.2-1.0 mg/dL (0.2-1.0)
--- NOTE | 2017-08-07 05:35 | CP.PCM.CON ---
History of Present Illness - History of Present Illness History of Present Illness: SURGERY CONSULT NOTE FOR DR. DOAN 67F presents with abdominal discomfort. She states the discomfort occurred yesterday. She only really feels it when she pushes on her abdomen. She states sometimes she feels this way when she is constipated and she has been feeling that way for some times up only today. She states she has now been regularly going to the bathroom often and feels much less bloated. She states the discomfort as resolved. She denies any nausea/vomiting, fevers, chills. She had multiple bowel movements whiles in ER and admits to flatus. She states she is currently hungry and wants to eat. Symptoms resolved. She saw GI last year who told her she was constipated also. PMH: HTN, hx of colon tumor PSH: partial colon resection with anastomosis 1995, lap cholecystectomy Social: denies tobacco, alcohol and illicit drugs Allergies: NKDA Past Patient History - Infectious Disease Hx of Infectious Diseases: None - Past Medical History & Family History Past Medical History?: Yes - Past Social History Smoking Status: Light Smoker < 10 Cigarettes Daily - CARDIAC Hx Hypertension: Yes - PULMONARY Hx Respiratory Disorders: No - NEUROLOGICAL Hx Neurological Disorder: No - HEENT Hx HEENT Problems: No - RENAL Hx Chronic Kidney Disease: No - ENDOCRINE/METABOLIC Hx Endocrine Disorders: No - HEMATOLOGICAL/ONCOLOGICAL Hx Human Immunodeficiency Virus (HIV): No - INTEGUMENTARY Hx Dermatological Problems: No - MUSCULOSKELETAL/RHEUMATOLOGICAL Hx Musculoskeletal Disorders: No - GASTROINTESTINAL Hx Gastrointestinal Disorders: No - GENITOURINARY/GYNECOLOGICAL Hx Urinary Tract Infection: Yes - PSYCHIATRIC Hx Psychophysiologic Disorder: No Hx Substance Use: No - SURGICAL HISTORY Hx Cholecystectomy: Yes - ANESTHESIA Hx Anesthesia: Yes Hx Anesthesia Reactions: No Meds Allergies/Adverse Reactions: Allergies Allergy/AdvReac Type Severity Reaction Status Date / Time iodine Allergy RASH Verified 11/25/16 16:23 Physical Exam - Constitutional Appears: Well, Non-toxic, No Acute Distress - Head Exam Head Exam: ATRAUMATIC - Eye Exam Eye Exam: EOMI, PERRL - ENT Exam ENT Exam: Mucous Membranes Moist - Respiratory Exam Respiratory Exam: Clear to Auscultation Bilateral, NORMAL BREATHING PATTERN - Cardiovascular Exam Cardiovascular Exam: REGULAR RHYTHM, +S1, +S2 - GI/Abdominal Exam GI & Abdominal Exam: Soft. absent: Distended, Firm, Guarding, Rebound, Rigid, Tenderness Additional comments: healed midline incision, healed incisions from lap cholecystectomy - Extremities Exam Extremities exam: Negative for: pedal edema, tenderness - Neurological Exam Neurological exam: Alert, Oriented x3 - Psychiatric Exam Psychiatric exam: Normal Affect, Normal Mood - Skin Skin Exam: Dry, Intact, Normal Color, Warm Results - Vital Signs Recent Vital Signs: Last Vital Signs Temp 97.3 F L 08/06/17 17:37 Pulse 83 08/06/17 17:37 Resp 16 08/06/17 17:37 BP 128/82 08/06/17 17:37 Pulse Ox 97 08/06/17 19:31 - Labs Result Diagrams: 08/06/17 20:40 08/06/17 20:40 Labs: Laboratory Results - last 24 hr 08/06/17 08/06/17 08/06/17 20:40 20:40 20:40 WBC 8.5 RBC 4.88 Hgb 16.0 D Hct 47.0 MCV 96.4 MCH 32.7 H MCHC 34.0 RDW 13.5 Plt Count 206 MPV 7.6 Neut % (Auto) 70.9 Lymph % (Auto) 22.0 [place] % (Auto) 5.5 Eos % (Auto) 1.2 Baso % (Auto) 0.4 Neut # (Auto) 6.0 Lymph # (Auto) 1.9 [place] # (Auto) 0.5 Eos # (Auto) 0.1 Baso # (Auto) 0.0 Sodium 139 Potassium 4.4 Chloride 101 Carbon Dioxide 25 Anion Gap 17 BUN 24 H Creatinine 0.8 Est GFR ( Amer) > 60 Est GFR (Non-Af Amer) > 60 Random Glucose 101 Lactic Acid 0.8 Calcium 9.4 Total Bilirubin 1.1 Direct Bilirubin 0.3 AST 29 ALT 38 Alkaline Phosphatase 105 Total Protein 7.9 Albumin 4.3 Globulin 3.6 Albumin/Globulin Ratio 1.2 Lipase 93 Urine Color Urine Clarity Urine pH Ur Specific [place] Urine Protein Urine Glucose (UA) Urine Ketones Urine Blood Urine Nitrate Urine Bilirubin Urine Urobilinogen Ur Leukocyte Esterase Urine RBC (Auto) Urine Microscopic WBC Ur Squamous Epith Cells Uric Acid Crystals Urine Bacteria 08/07/17 03:19 WBC RBC Hgb Hct MCV MCH MCHC RDW Plt Count MPV Neut % (Auto) Lymph % (Auto) [place] % (Auto) Eos % (Auto) Baso % (Auto) Neut # (Auto) Lymph # (Auto) [place] # (Auto) Eos # (Auto) Baso # (Auto) Sodium Potassium Chloride Carbon Dioxide Anion Gap BUN Creatinine Est GFR ( Amer) Est GFR (Non-Af Amer) Random Glucose Lactic Acid Calcium Total Bilirubin Direct Bilirubin AST ALT Alkaline Phosphatase Total Protein Albumin Globulin Albumin/Globulin Ratio Lipase Urine Color Yellow Urine Clarity Cloudy Urine pH 5.0 Ur Specific [place] 1.023 Urine Protein Negative Urine Glucose (UA) Neg Urine Ketones Negative Urine Blood Small Urine Nitrate Negative Urine Bilirubin Negative Urine Urobilinogen 0.2-1.0 Ur Leukocyte Esterase Neg Urine RBC (Auto) 6 H Urine Microscopic WBC 3 Ur Squamous Epith Cells < 1 Uric Acid Crystals Occ H Urine Bacteria Rare Assessment & Plan - Assessment and Plan (Free Text) Assessment: 67F with resolved constipation with CT findings also shows some mid bowel air fluid levels with change in caliber at bowel anastomosis, likely ileum to colon , distal bowel is normal caliber Plan: - patient clear for DC - follow up in office Discussed with Dr. Huey Keane, PGY2
[2017-08-07 06:16] VITALS: BP 144/89; PULSE 60; RESP 18; TEMP 98
[2017-08-07 06:30] VITALS: O2SAT 97
--- NOTE | 2017-08-07 08:48 | CT ---
PROCEDURE: CT Abdomen and Pelvis with contrast HISTORY: RLQ pain, epigastric pain and diarrhea COMPARISON: 11/26/2016. TECHNIQUE: CT scan of the abdomen and pelvis was performed without administration of intravenous contrast. Oral contrast was administered. Coronal and sagittal reformatted images were obtained. Radiation dose: Total exam DLP = 226.23 mGy-cm. This CT exam was performed using one or more of the following dose reduction techniques: Automated exposure control, adjustment of the mA and/or kV according to patient size, and/or use of iterative reconstruction technique. FINDINGS: LOWER THORAX: The lung bases are clear. LIVER: Normal in size. No gross lesion or intrahepatic ductal dilatation. GALLBLADDER AND BILE DUCTS: Surgically absent. Mild dilatation of the common bile duct is in keeping with postcholecystectomy status. PANCREAS: Mild atrophy. No gross lesion or ductal dilatation. SPLEEN: Normal in size. ADRENALS: No discrete nodule. KIDNEYS AND URETERS: Both kidneys are normal in size. There is a duplex collecting system in the right kidney. Both ureters unite at the level of the renal pelvis. There is a punctate nonobstructing stone in the interpolar region of the right kidney. There is no left nephrolithiasis. There is a 5.3 cm simple cyst in the upper pole of the left kidney. There is mild bilateral hydronephrosis and moderate distention of both renal pelvises which are extrarenal in configuration can also mild diffuse dilatation of both proximal ureters. VASCULATURE: No aortic aneurysm. BOWEL: The proximal small bowel loops are normal in caliber. There are postsurgical changes in the right lower quadrant small bowel with a. There is moderate dilatation of the small bowel proximal to the anastomosis with change in normal caliber distal to the anastomosis. Contrast is seen in the mid and distal small bowel loops as well as in the colon. The cecum and right: Are positioned in the mid abdomen. APPENDIX: Normal appendix. PERITONEUM: No free fluid. No free air. LYMPH NODES: No enlarged lymph nodes. BLADDER: Unremarkable. REPRODUCTIVE: Unremarkable. BONES: No acute fracture. Diffuse bone demineralization and multilevel degenerative changes. Mild levoscoliosis in the lumbar spine. OTHER FINDINGS: There is a small sliding hiatal hernia. IMPRESSION: Postsurgical changes in the right lower quadrant small bowel with end-to-end anastomosis, moderate dilatation of small bowel proximal to the anastomosis with transition to normal caliber small bowel distal to the anastomosis, findings may represent developing partial small bowel obstruction. Mild bilateral hydronephrosis common distention of both renal pelvises and proximal ureters without obstructing stone.
== END 2017-08-07 06:45 | disposition home or self-care (01) ==
LOC: H.ER 17:33
DX: R19.7 Diarrhea, unspecified (principal); R11.0 Nausea; I10 Essential (primary) hypertension; N13.30 Unspecified hydronephrosis; Z90.49 Acquired absence of other specified parts of digestive tract; E11.9 Type 2 diabetes mellitus without complications
CPT/HCPCS: 74176; 80048; 80076; 81003; 83605; 83690; 85025; 87040; 99284; J7040; Q9966